=== PATIENT | male | born 1960 | race Caucasian/White ===

== ENCOUNTER 2020-10-18 16:42 | Outpatient (REF) | payer MEDICAID, SELFPAY | END 2020-10-18 16:43 | disposition home or self-care (01) | LOC: HO.LNP 16:42 | PROVIDERS: Visit Provider Hospitalist | DX: R35.1 Nocturia (principal); Z20.822 Contact with and (suspected) exposure to COVID-19 | CPT/HCPCS: U0003; U0005 ==

== ENCOUNTER 2020-10-20 17:58 | Emergency (ER) | payer MEDICAID, SELFPAY ==
[2020-10-20 18:03] VITALS: BP 195/109; PULSE 89; RESP 16; TEMP 36.5; O2SAT 100; BMI 38.3
--- NOTE | 2020-10-20 18:29 | ED.GENADULT ---
HPI - General Adult General Chief complaint: General Medical Stated complaint: High blood pressure Time Seen by Provider: 10/20/20 18:29 Source: patient Mode of arrival: ambulatory Limitations: no limitations History of Present Illness HPI narrative: Patient with no history of blood pressure hypertension was seen at urgent care for constipation noted to have blood pressure 189/109 repeat blood pressure was 220/110 when he arrived in the ER was 184/103 patient saw the PCP 2 days ago but at that time blood pressure was fine did not have any blood workup done for long time patient feels fine otherwise no chest pain or shortness of breath does have problems when urinate and does have constipation patient without any significant stress Related Data Previous Rx's Medication Instructions Recorded ibuprofen 600 mg tablet 600 mg PO TID #30 tab 10/18/20 amlodipine 5 mg PO DAILY #30 tab 10/20/20 Allergies Allergy/AdvReac Type Severity Reaction Status Date / Time Penicillins Allergy Unknown Verified 10/20/20 18:03 Review of Systems Review of Systems: Yes all other systems are reviewed and are negative [facility] Social History Social History Alcohol intake: never Patient Tobacco Use Status: Never used Tobacco Use of substances other than those prescribed or required for medical reasons: No Advance Directives: No Advance Directives Information Provided: Yes Advance Directives on File: No Physical Exam Vital Signs: Vital Signs: Last Vital Signs Temp 98.2 F 10/20/20 20:20 Pulse 86 10/20/20 20:24 Resp 18 10/20/20 20:20 BP 181/104 H 10/20/20 20:24 Pulse Ox 98 10/20/20 20:20 Body Mass Index 38.3 Appearance: Alert. Oriented X3. No acute distress. Eyes: PERRLA, No Nystagmus ENT: Pharynx normal. Oral Mucosa moist Neck: Normal inspection. Neck supple. CVS: Normal heart rate and rhythm. Pulses normal. Respiratory: No respiratory distress. Equal air entry bilateral, no wheezing/rales/rhonchi Abdomen: Soft and nontender. Bowel sounds are present, no mass palpable, no CVA tenderness Skin: Skin warm and dry. Normal skin color. Normal skin turgor. Extremities: No lower extremity edema. No calf tenderness Neuro: Oriented X 3. No motor deficit. No sensory deficit.No cerebellar signs , cranial nerves II-XII intact Medical Decision Making Lab Data Result diagrams: 10/20/20 19:20 10/20/20 19:20 Labs: Lab Results 10/20/20 10/20/20 10/20/20 Range/Units 19:20 19:20 20:23 WBC 11.1 H (4.8-10.8) X10*3/uL RBC 3.75 L (4.60-5.80) X10*6/uL Hgb 11.8 L (14.0-18.0) g/dl Hct 34.3 L (42-52) % MCV 91.5 (80-98) fL MCH 31.5 (27.0-33.0) pg MCHC 34.4 (31.0-36.0) g/dl RDW 11.8 (11.0-16.0) % Plt Count 334 (160-400) X10*3/uL MPV 10.7 (9.4-12.4) fL Immature Gran % (Auto) 0.5 H (0.0-0.4) % Neut % (Auto) 67.9 (45-73) % Lymph % (Auto) 20.0 (20-40) % [place] % (Auto) 8.7 (2-11) % Eos % (Auto) 2.3 (0-4) % Baso % (Auto) 0.6 (0-2) % Lymph # (Auto) 2.2 (1.2-4.9) X10*3/uL [place] # (Auto) 1.0 (0.1-1.2) X10*3/uL Eos # (Auto) 0.3 (0.0-0.4) X10*3/uL Baso # (Auto) 0.1 (0.0-0.2) X10*3/uL Abs Immat Gran (auto) 0.05 H (0.00-0.03) X10*3/uL Absolute Neuts (auto) 7.5 (2.0-8.3) X10*3/uL Absolute Nucleated RBC 0.000 (0.0-0.012) X10*3/uL Nucleated RBC % (auto) 0.0 (0.0-0.2) /100WBC Sodium 137 (135-145) mmol/L Potassium 4.4 (3.3-5.1) mmol/L Chloride 101 (96-108) mmol/L Carbon Dioxide 26 (22-29) mmol/L Anion Gap 14 (12-20) BUN 22 H (9-16) mg/dL Creatinine 2.57 H (0.5-1.4) mg/dL Estim Creat Clear Calc 41.6 Estimated GFR 26 POC Glucose 239 H (60-115) mg/dL Random Glucose 274 H (60-115) mg/dL Calcium 9.0 (8.4-10.2) mg/dL Discharge Plan Discharge Clinical Impression: Hypertension, Chronic kidney disease, Diabetes mellitus Patient Disposition: Home, Self-Care Instructions: Chronic Kidney Disease (ED), Hypertension and Diabetes (ED) Additional Instructions: Decreased salt intake drink plenty of fluids Follow with PCP as scheduled also Follow with cash management clerk take medication for blood pressure your normal blood pressure should be less than 140/90 Prescriptions: New amlodipine 5 mg tablet 5 mg PO DAILY Qty: 30 RF: 0 No Action ibuprofen 600 mg tablet 600 mg PO TID Qty: 30 RF: 0 Referrals: Daryl Kwok MD [Physician] - 1 week Interventions: ED Discharge Assessment Last Done: 10/20/20 20:32 Discharge Date/Time: 10/20/20 20:39
[2020-10-20 18:50] VITALS: BP 184/103; PULSE 84
[2020-10-20] MEDS: lisinopriL 20 MG TABLET PO (18:50)
[2020-10-20 19:28] LABS: MANUAL DIFF FLAG NO
[2020-10-20 19:29] LABS: Basophils Absolute Auto 0.1 X10*3/uL (0.0-0.2); Basophils Percent Auto 0.6 % (0-2); Eosinophils Absolute Auto 0.3 X10*3/uL (0.0-0.4); Eosinophils Percent Auto 2.3 % (0-4); Hematocrit 34.3 % (42-52); Hemoglobin 11.8 g/dl (14.0-18.0); Imm Gran Abs Auto 0.05 X10*3/uL (0.00-0.03); Imm Gran Pct Auto 0.5 % (0.0-0.4); Lymphocytes Absolute Auto 2.2 X10*3/uL (1.2-4.9); Mean Corpuscular HGB Conc 34.4 g/dl (31.0-36.0); Mean Corpuscular Hemoglobin 31.5 pg (27.0-33.0); Mean Corpuscular Volume 91.5 fL (80-98); Mean Platelet Volume 10.7 fL (9.4-12.4); Monocytes Percent Auto 8.7 % (2-11); Neutrophils Absolute Auto 7.5 X10*3/uL (2.0-8.3); Neutrophils Percent Auto 67.9 % (45-73); Platelet Count 334 X10*3/uL (160-400); Red Blood Count 3.75 X10*6/uL (4.60-5.80); Red Cell Distribution Width 11.8 % (11.0-16.0); White Blood Count 11.1 X10*3/uL (4.8-10.8)
[2020-10-20 19:51] LABS: Anion Gap 14 (12-20); Blood Urea Nitrogen 22 mg/dL (9-16); Carbon Dioxide 26 mmol/L (22-29); Chloride 101 mmol/L (96-108); Creatinine Clr Calc Pharmacy 41.6; Estimated Glomerular Filt Rate 26; Glucose Random 274 mg/dL (60-115); Potassium 4.4 mmol/L (3.3-5.1); Sodium 137 mmol/L (135-145)
[2020-10-20 20:20] VITALS: BP 181/104; PULSE 86; RESP 18; TEMP 36.8; O2SAT 98
[2020-10-20 20:24] VITALS: BP 181/104; PULSE 86
[2020-10-20] MEDS: amLODIPine Besylate 5 MG TABLET PO (20:24)
--- NOTE | 2020-10-20 20:25 | PC.NURSE ---
pt requesting food-provider notified, pt also pulled off tele monitor and got dressed, pt stating hes leaving in 5 or 10 minutes.
[2020-10-20 20:30] LABS: Glucose, Whole Blood 239 mg/dL (60-115)
== END 2020-10-20 20:39 | disposition home or self-care (01) ==
PROVIDERS: Emergency Provider Internal Medicine; PCP Internal Medicine
DX: I12.9 Hypertensive chronic kidney disease with stage 1 through stage 4 chronic kidney disease, or unspecified chronic kidney disease (principal); E11.22 Type 2 diabetes mellitus with diabetic chronic kidney disease; N18.9 Chronic kidney disease, unspecified
CPT/HCPCS: 36415; 80048; 82947; 85025; 99284

== ENCOUNTER 2020-10-29 11:55 | Outpatient (REF) | payer MEDICAID, SELFPAY ==
[2020-10-29 13:57] LABS: Hematocrit 37.6 % (42-52); Hemoglobin 12.4 g/dl (14.0-18.0); Mean Corpuscular Hemoglobin 30.5 pg (27.0-33.0); Mean Corpuscular Volume 92.6 fL (80-98); Mean Platelet Volume 11.8 fL (9.4-12.4); Platelet Count 291 X10*3/uL (160-400); Red Blood Count 4.06 X10*6/uL (4.60-5.80); White Blood Count 11.8 X10*3/uL (4.8-10.8)
[2020-10-29 15:34] LABS: Alanine Aminotransferase 11 U/L (0-40); Albumin Level 4.1 g/dL (3.5-5.0); Alkaline Phosphatase 73 U/L (39-117); Anion Gap 17 (12-20); Aspartate Amino Transferase 13 U/L (5-37); Bilirubin Total 0.3 mg/dL (0.0-1.0); Blood Urea Nitrogen 56 mg/dL (9-16); Calcium 9.8 mg/dL (8.4-10.2); Carbon Dioxide 22 mmol/L (22-29); Chloride 108 mmol/L (96-108); Estimated Glomerular Filt Rate 15; Glucose Fasting 193 mg/dL (60-99); Potassium 5.3 mmol/L (3.3-5.1); Sodium 142 mmol/L (135-145); Total Protein 8.2 g/dL (6.5-8.0)
== END 2020-10-29 11:56 | disposition home or self-care (01) ==
LOC: HO.HMGCLDS 11:55
PROVIDERS: PCP Internal Medicine; Visit Provider Hospitalist
DX: R35.1 Nocturia (principal)
CPT/HCPCS: 36415; 80053; 85027

== ENCOUNTER 2020-10-29 19:34 | Inpatient (IN) | payer MEDICAID, SELFPAY ==
--- NOTE | ~2020-10-29 | CT_ITS ---
EXAMINATION: CT ABDOMEN AND PELVIS WITHOUT CONTRAST CLINICAL INFORMATION: Renal failure. Evaluate for obstruction. COMPARISON: None TECHNIQUE: Multidetector volumetric imaging was performed from the superior aspect of the liver through the pubic symphysis. Sagittal and coronal reformatted images were obtained on the technologist's workstation. This CT examination was performed using dose optimization techniques as appropriate, variously including the following: *Automated exposure control *Adjustment of mA and/or kV according to patient size (this includes techniques or standardized protocols for targeted exams where dose is matched to indication/reason for exam; i.e. extremities or head) *Use of iterative reconstruction technique DLP: 1030 mGy-cm FINDINGS: LUNG BASES: Lungs are clear. Coronary calcifications. LIVER, GALLBLADDER, AND BILIARY TREE: The liver is normal in size, shape, and attenuation. No focal hepatic lesion or biliary ductal dilatation is present. Gallbladder unremarkable. PANCREAS: Unremarkable. SPLEEN: Unremarkable. ADRENAL GLANDS: Unremarkable. KIDNEYS, URETERS, BLADDER AND PROSTATE There is severe right and moderate left hydronephrosis and hydroureter leading up to the bladder which is markedly distended with a volume of approximately 1.5 L.c prostate is markedly enlarged measuring 7.6 cm transversely. There is perinephric stranding present on the right, as well as periureteral stranding about the right ureter. No urinary calculi. There is a 2.8 cm cyst within interpolar cortex of the LEFT kidney. GASTROINTESTINAL TRACT: Scattered colonic diverticula, without evidence of diverticulitis. Normal appendix. Stomach and small bowel unremarkable. ABDOMINAL WALL: No significant hernia is appreciated. LYMPH NODES: Normal. VASCULAR: Unremarkable. OSSEOUS STRUCTURES: No acute or suspicious osseous abnormalities. Diffuse disc bulge and associated endplate osteophytes. Calcific disc material present posteriorly at L5-S1. CT/CT abdomen pelvis wo con IMPRESSION: * Moderate to severe RIGHT and moderate LEFT hydronephrosis and bilateral hydroureter the to the markedly distended bladder. There is marked prostatomegaly. These changes likely pertain to bladder outlet obstruction. There is also RIGHT perinephric and periureteral fat stranding which could represent superimposed pyelonephritis/ureteritis. * Scattered colonic diverticula without evidence of diverticulitis.
--- NOTE | ~2020-10-29 | XR_ITS ---
EXAMINATION: XR CHEST CLINICAL INFORMATION: Acute on chronic renal failure COMPARISON: None TECHNIQUE: Frontal view of the chest was obtained. FINDINGS: Normal symmetric lung volumes. No parenchymal consolidation. No pleural effusion. No pneumothorax. Cardiomediastinal silhouette and pulmonary vascularity are within normal limits. No acute osseous abnormalities. XR/XR chest 1V IMPRESSION: Unremarkable examination.
[2020-10-29 19:41] VITALS: BP 168/86; PULSE 97; RESP 18; TEMP 36.9; O2SAT 100; BMI 36.2
--- NOTE | 2020-10-29 21:56 | ECG_ITS ---
Test Reason : MEDICALCLEARANCE Blood Pressure : / mmHG Vent. Rate : 091 BPM Atrial Rate : 091 BPM P-R Int : 220 ms QRS Dur : 082 ms QT Int : 372 ms P-R-T Axes : 064 074 095 degrees QTc Int : 457 ms Sinus rhythm with 1st degree A-V block Non specific T inversion lateral leads Borderline ECG No previous ECGs available Referred By: Humaira Wilkinson Electronically Signed By:SURINDER CRONIN
--- NOTE | 2020-10-29 22:40 | ED_ITS ---
HPI - General Adult General Chief complaint: Recheck/Abnormal Lab/Rx Stated complaint: abnormal labs Time Seen by Provider: 10/29/20 21:53 Source: patient Mode of arrival: ambulatory Limitations: no limitations History of Present Illness HPI narrative: 60-year-old male who walked into the emergency department for ab normal labs check. 60-year-old male who is not compliant with his medication and do not see PCP regularly with known history of hypertension and not taking the medicine for high blood pressure, patient was sent today for abnormal labs patient not sure what is abnormal. Patient only complained of urinary frequency for the past 2 months. No chest pain, no abdominal pain. Related Data Previous Rx's Medication Instructions Recorded ibuprofen 600 mg tablet 600 mg PO TID #30 tab 10/18/20 amlodipine 5 mg PO DAILY #30 tab 10/20/20 Allergies Allergy/AdvReac Type Severity Reaction Status Date / Time Penicillins Allergy Unknown Verified 10/20/20 18:03 Review of Systems Review of Systems: All other systems are reviewed and are negative Constitutional: Reports as per HPI and Reports no additional constitutional complaints Eyes: Reports as per HPI and Reports no additional eye complaints Reports system reviewed and no additional complaints, except as documented Cardiovascular: Reports as per HPI and Reports no additional cardiovascular complaints Respiratory: Reports as per HPI and Reports no additional respiratory complaints Gastrointestinal: Reports as per HPI and Reports no additional gastrointestinal complaints Genitourinary: Reports no additional female genitourinary complaints Musculoskeletal: Reports no additional musculoskeletal complaints Skin/Breast: Reports system reviewed and no additional complaints, except as docu Psychiatric: Reports no additional psychiatric complaints Endocrine: Reports no additional endocrine complaints Hematologic/Lymphatic: Reports no additional hematologic/lymphatic complaints Allergic/Immunologic: Reports no additional allergic/immunologic complaints Reports system reviewed and no additional complaints, except as documented and Reports Abnormal speech present [facility] Social History Social History Alcohol intake: never Patient Tobacco Use Status: Never used Tobacco Advance Directives: No Advance Directives Information Provided: No Physical Exam Vital Signs: Vital Signs: Last Vital Signs Temp 98.6 F 10/30/20 01:08 Pulse 86 10/30/20 01:08 Resp 16 10/30/20 01:08 BP 168/91 H 10/30/20 01:08 Pulse Ox 99 10/30/20 01:08 Body Mass Index 36.2 Vital signs have been reviewed as appeared to be correct. Blood pressure elevated. Heart rate normal. Respiration rate normal. Temperature normal. Oxygen saturation normal. Appearance: Alert. Oriented X3. No acute distress. Head: Normal external exam. Normocephalic. Atraumatic. No Campos signs noted. No raccoon eyes noted Eyes: PERRLA. EOMI. Conjunctiva and sclera normal. Eyelids normal. ENT: TM's Normal. Pharynx normal. Uvula midline. Moist mucous membranes. No trismus noted. No drooling noted. No muffled voice noted. Neck: Normal inspection. Neck supple. FROM. No adenopathy. Thyroid Normal. No meningeal signs. No neck mass noted. CVS: Normal heart rate and rhythm. Heart sound normal. No murmurs noted. Pulses normal throughout. Respiratory: No respiratory distress. Painless inspiration. Breath sounds normal. No wheezes/rales/rhonchi noted. Chest nontender. No accessory muscle usage noted or decreased air movement noted. Abdomen: Soft and nontender. Bowel sounds normal in all 4 quadrants. No distention noted. No organomegaly noted. No visible injury noted. Back: No CVA tenderness. Full range of motion noted. Skin: Skin warm and dry. Normal skin color. Normal skin turgor. No rashes/lesions/lacerations noted. Extremities: Bilateral lower extremities +2 pitting edema. Neuro: Oriented X 3. No motor deficit. No sensory deficit. Reflexes normal. Course Course Course Narrative: Assessment and plan. 60-year-old male came in with acute on chronic renal failure, with mild hyperkalemia with no EKG changes, non compliant with medication for hypertension. Case discussed with Dr. Cuenca from Nephrology. Recommended to control blood pressure by giving hydralazine and amlodipine. Give p.o. 30 mg of Kayexalate for the hyperkalemia. Check urine electrolytes. CT of the abdomen and pelvis with no contrast to rule out obstructive uropathy. And admit the patient and he will see him in the morning. Reevaluation(s) Reevaluation #1: Assessment and plan. 60-year-old male came in with acute on chronic renal failure, CT scan showing urinary bladder outlet obstruction due to enlarged prostate, urine with mild UTI, patient do not meet criteria for sepsis since the patient have symptoms of dysuria well cover with levofloxacin seen, patient do not meet criteria for SIRS. Time: 01:46 Medical Decision Making Lab Data Lab results reviewed: Yes I reviewed the patient's lab results. Result diagrams: 10/29/20 23:01 10/29/20 23:01 Labs: Lab Results 10/29/20 10/29/20 10/29/20 Range/Units 23:01 23:01 23:01 WBC 11.9 H (4.8-10.8) X10*3/uL RBC 3.74 L (4.60-5.80) X10*6/uL Hgb 11.6 L (14.0-18.0) g/dl Hct 34.4 L (42-52) % MCV 92.0 (80-98) fL MCH 31.0 (27.0-33.0) pg MCHC 33.7 (31.0-36.0) g/dl RDW 12.1 (11.0-16.0) % Plt Count 271 (160-400) X10*3/uL MPV 11.1 (9.4-12.4) fL Immature Gran % (Auto) 0.3 (0.0-0.4) % Neut % (Auto) 68.6 (45-73) % Lymph % (Auto) 19.7 L (20-40) % [place] % (Auto) 8.4 (2-11) % Eos % (Auto) 2.5 (0-4) % Baso % (Auto) 0.5 (0-2) % Lymph # (Auto) 2.3 (1.2-4.9) X10*3/uL [place] # (Auto) 1.0 (0.1-1.2) X10*3/uL Eos # (Auto) 0.3 (0.0-0.4) X10*3/uL Baso # (Auto) 0.1 (0.0-0.2) X10*3/uL Abs Immat Gran (auto) 0.03 (0.00-0.03) X10*3/uL Absolute Neuts (auto) 8.1 (2.0-8.3) X10*3/uL Absolute Nucleated RBC 0.000 (0.0-0.012) X10*3/uL Nucleated RBC % (auto) 0.0 (0.0-0.2) /100WBC Sodium 139 (135-145) mmol/L Potassium 5.4 H (3.3-5.1) mmol/L Chloride 107 (96-108) mmol/L Carbon Dioxide 17 L (22-29) mmol/L Anion Gap 20 (12-20) BUN 57 H (9-16) mg/dL Creatinine 4.22 H* (0.5-1.4) mg/dL Estim Creat Clear Calc 24.6 Estimated GFR 15 Random Glucose 261 H (60-115) mg/dL Calcium 8.8 D (8.4-10.2) mg/dL Magnesium 1.9 (1.6-2.6) mg/dL Total Bilirubin 0.2 (0.0-1.0) mg/dL AST 15 (5-37) U/L ALT 11 (0-40) U/L Alkaline Phosphatase 68 (39-117) U/L B-Natriuretic Peptide 53 (<100) pg/mL Total Protein 7.9 (6.5-8.0) g/dL Albumin 3.8 (3.5-5.0) g/dL Lipase 167 H (8-78) U/L Urine Color Urine Appearance Urine pH (5.0-8.0) Ur Specific [place] (1.005-1.025) Urine Protein (NEG-TRACE) MG/DL Urine Glucose (UA) (NEG) MG/DL Urine Ketones (NEG) MG/DL Urine Blood (NEG) Urine Nitrite (NEG) Ur Leukocyte Esterase (NEG) Urine RBC (0) /HPF Urine WBC (0-4) /HPF Ur Squamous Epith Cells /LPF Ur Renal Epithelial Cell /LPF Urine Bacteria /LPF U Random Total Protein (<12) mg/dL Ur Random Sodium mmol/L Urine Creatinine mg/dL COVID-19 (NEAL) (Negative) COVID-19 Clin Com 10/30/20 10/30/20 10/30/20 Range/Units 00:20 00:20 00:23 WBC (4.8-10.8) X10*3/uL RBC (4.60-5.80) X10*6/uL Hgb (14.0-18.0) g/dl Hct (42-52) % MCV (80-98) fL MCH (27.0-33.0) pg MCHC (31.0-36.0) g/dl RDW (11.0-16.0) % Plt Count (160-400) X10*3/uL MPV (9.4-12.4) fL Immature Gran % (Auto) (0.0-0.4) % Neut % (Auto) (45-73) % Lymph % (Auto) (20-40) % [place] % (Auto) (2-11) % Eos % (Auto) (0-4) % Baso % (Auto) (0-2) % Lymph # (Auto) (1.2-4.9) X10*3/uL [place] # (Auto) (0.1-1.2) X10*3/uL Eos # (Auto) (0.0-0.4) X10*3/uL Baso # (Auto) (0.0-0.2) X10*3/uL Abs Immat Gran (auto) (0.00-0.03) X10*3/uL Absolute Neuts (auto) (2.0-8.3) X10*3/uL Absolute Nucleated RBC (0.0-0.012) X10*3/uL Nucleated RBC % (auto) (0.0-0.2) /100WBC Sodium (135-145) mmol/L Potassium (3.3-5.1) mmol/L Chloride (96-108) mmol/L Carbon Dioxide (22-29) mmol/L Anion Gap (12-20) BUN (9-16) mg/dL Creatinine (0.5-1.4) mg/dL Estim Creat Clear Calc Estimated GFR Random Glucose (60-115) mg/dL Calcium (8.4-10.2) mg/dL Magnesium (1.6-2.6) mg/dL Total Bilirubin (0.0-1.0) mg/dL AST (5-37) U/L ALT (0-40) U/L Alkaline Phosphatase (39-117) U/L B-Natriuretic Peptide (<100) pg/mL Total Protein (6.5-8.0) g/dL Albumin (3.5-5.0) g/dL Lipase (8-78) U/L Urine Color STRAW Urine Appearance CLEAR Urine pH 6.0 (5.0-8.0) Ur Specific [place] 1.010 (1.005-1.025) Urine Protein NEG (NEG-TRACE) MG/DL Urine Glucose (UA) 100 H (NEG) MG/DL Urine Ketones NEG (NEG) MG/DL Urine Blood NEG (NEG) Urine Nitrite NEG (NEG) Ur Leukocyte Esterase TRACE H (NEG) Urine RBC 0-2 (0) /HPF Urine WBC 5-9 H (0-4) /HPF Ur Squamous Epith Cells TRACE /LPF Ur Renal Epithelial Cell TRACE /LPF Urine Bacteria NONE /LPF U Random Total Protein < 7 (<12) mg/dL Ur Random Sodium 44.0 mmol/L Urine Creatinine 39.78 mg/dL COVID-19 (NEAL) Negative (Negative) COVID-19 Clin Com See Note Imaging Data CT scan - abdomen: Radiologist's impression: IMPRESSION: * Moderate to severe RIGHT and moderate LEFT hydronephrosis and bilateral hydroureter the to the markedly distended bladder. There is marked prostatomegaly. These changes likely pertain to bladder outlet obstruction. There is also RIGHT perinephric and periureteral fat stranding which could represent superimposed pyelonephritis/ureteritis. * Scattered colonic diverticula without evidence of diverticulitis. Chest x-ray: Radiologist's impression: No acute pathology Discharge Plan Discharge Clinical Impression: Acute hyperkalemia Acute on chronic kidney failure Qualifiers: Acute renal failure type: unspecified Patient Disposition: Admitted As Inpatient
[2020-10-29 23:05] LABS: MANUAL DIFF FLAG NO
[2020-10-29 23:07] LABS: Basophils Absolute Auto 0.1 X10*3/uL (0.0-0.2); Basophils Percent Auto 0.5 % (0-2); Eosinophils Absolute Auto 0.3 X10*3/uL (0.0-0.4); Eosinophils Percent Auto 2.5 % (0-4); Hematocrit 34.4 % (42-52); Hemoglobin 11.6 g/dl (14.0-18.0); Imm Gran Abs Auto 0.03 X10*3/uL (0.00-0.03); Imm Gran Pct Auto 0.3 % (0.0-0.4); Lymphocytes Absolute Auto 2.3 X10*3/uL (1.2-4.9); Lymphocytes Percent Auto 19.7 % (20-40); Mean Corpuscular HGB Conc 33.7 g/dl (31.0-36.0); Mean Platelet Volume 11.1 fL (9.4-12.4); Monocytes Percent Auto 8.4 % (2-11); Neutrophils Absolute Auto 8.1 X10*3/uL (2.0-8.3); Neutrophils Percent Auto 68.6 % (45-73); Platelet Count 271 X10*3/uL (160-400); Red Blood Count 3.74 X10*6/uL (4.60-5.80); Red Cell Distribution Width 12.1 % (11.0-16.0); White Blood Count 11.9 X10*3/uL (4.8-10.8)
[2020-10-29 23:34] LABS: Alanine Aminotransferase 11 U/L (0-40); Albumin Level 3.8 g/dL (3.5-5.0); Alkaline Phosphatase 68 U/L (39-117); Anion Gap 20 (12-20); Aspartate Amino Transferase 15 U/L (5-37); B Type Natriuretic Peptide 53 pg/mL (<100); Bilirubin Total 0.2 mg/dL (0.0-1.0); Blood Urea Nitrogen 57 mg/dL (9-16); Calcium 8.8 mg/dL (8.4-10.2); Carbon Dioxide 17 mmol/L (22-29); Chloride 107 mmol/L (96-108); Creatinine Clr Calc Pharmacy 24.6; Estimated Glomerular Filt Rate 15; Glucose Random 261 mg/dL (60-115); Lipase 167 U/L (8-78); Potassium 5.4 mmol/L (3.3-5.1); Sodium 139 mmol/L (135-145); Total Protein 7.9 g/dL (6.5-8.0)
[2020-10-30] VITALS (9 sets, daily range): BP systolic 141–180; BP diastolic 58–98; PULSE 80–91; RESP 12–20; TEMP 36.5–37.5; O2SAT 96–100; BMI 34.6
[2020-10-30] MEDS: amLODIPine Besylate 2.5 MG TABLET PO (00:26)
[2020-10-30] MEDS: hydrALAZINE HCl 25 MG TABLET PO (00:27)
[2020-10-30] MEDS: 0.9 % Sodium Chloride 1,000 ML 999 ML IVCONT (00:28)
[2020-10-30] MEDS: Sodium Polystyrene Sulfon/Sorb 15 GM/60 ML ORAL.SUSP 30 GM PO (00:28)
[2020-10-30 00:38] LABS: Glucose Urine UA 100 MG/DL (NEG); Leukocyte Esterase Urine TRACE (NEG); Nitrite Urine NEG (NEG); UACC Culture Trigger YES; Urine Blood NEG (NEG); Urine Ketones NEG (NEG); Urine Protein NEG (NEG-TRACE)
[2020-10-30 00:43] LABS: Magnesium 1.9 mg/dL (1.6-2.6)
[2020-10-30 00:50] LABS: Appearance Urine CLEAR; Color Urine STRAW; RBC Urine 0-2 /HPF (0); Renal Epithelial Cells Urine TRACE /LPF; Squamous Epithelial Cell Urine TRACE /LPF
[2020-10-30 01:14] LABS: COVID-19 Test Negative (Negative); IDNOW Serial# 9DD0AD1C
[2020-10-30 01:15] LABS: Creatinine Urine 39.78 mg/dL; Total Protein Urine Random < 7 mg/dL (<12)
--- NOTE | 2020-10-30 02:46 | PC.NURSE ---
diamante not in stock in [facility],
[2020-10-30] MEDS: levoFLOXacin/D5W 750 MG/150 ML PIGGYBACK 100 MG IV (02:47)
--- NOTE | 2020-10-30 03:14 | PC.NURSE ---
sodium chloride still infusing slowly, waiting to hang L.R.
[2020-10-30 03:28] LABS: Estimated Average Glucose 260 mg/dL; Hemoglobin A1c % 10.7 %
[2020-10-30] MEDS: Enoxaparin Sodium 40 MG/0.4 ML SYRINGE SUBCUT (03:36)
[2020-10-30] MEDS: Lactated Ringers 1,000 ML 125 ML IVCONT (03:36)
--- NOTE | 2020-10-30 05:23 | PC.NURSE ---
pt has been to the bathroom 2-3 tin=mes, reports diarrhea.
--- NOTE | 2020-10-30 06:37 | P.HPHOSP_ITS ---
History of Present Illness Date of Service: 10/30/20 Chief Complaint: Abnormal lab This is a 60-year-old male who was recently diagnosed with diabetes not on medications, and history of hypertension who presents to the hospital stating that his labs today showed abnormal kidney function and therefore was asked by his PCP to come to the hospital. Patient reports that about 2 weeks ago he saw due to urinary frequency and they did labs that showed he was diabetic but patient was not started on any medications pending visit with his PCP. He had an appointment with his PCP coming up in early November but labs today showed abnormal kidney function and therefore was referred to come to the hospital. His urinary frequency is mostly at nighttime. Patient reports urinary frequency, urgency with no dysuria for the past 2 weeks, he also reports lower extremity swelling for the past 2 weeks with no dyspnea, n o orthopnea or PND, he reports that he had low appetite last week but his appetite is improving but is not back to his baseline. He denies any abdominal pain but reports nausea and vomiting today. No chills, no fever. No headache, change in vision, no shortness of breath, no chest pain, no weakness numbness or tingling. On arrival to the ED patient hemodynamically stable with blood pressure of 168/86, For WBC count of 11.8, hemoglobin of 12.4, potassium of 5.4, BUN of 57 and creatinine of 4.2 as compared to BUN of 22 and creatinine of 2.57 on October 20, UA positive for leukocyte Estrace and WBC Pelvic she has T showed moderate to severe right and moderate left hydronephrosis and bilateral hydroureter to the markedly distended bladder, there is marked prostatomegaly, these changes likely pertain to bladder outlet obstruction right perinephric and periurethral fat stranding which could worsen superimposed pyelonephritis, Past medical history as below and confirmed as patient Review of Systems Review of Systems: Yes all other systems are reviewed and are negative [facility] Medical History (Updated 10/30/20 @ 06:45 by Benita Almaraz MD) Chronic kidney disease Diabetes mellitus Hypertension Social History Alcohol intake: never Patient Tobacco Use Status: Never used Tobacco Advance Directives: No Advance Directives Information Provided: No Meds Allergies Allergy/AdvReac Type Severity Reaction Status Date / Time Penicillins Allergy Unknown Verified 10/20/20 18:03 Active Medications: Current Medications Generic Name Dose Route Start Last Admin Trade Name Freq PRN Reason Stop Dose Admin Acetaminophen 650 mg 10/30/20 00:30 Acetaminophen 325 Mg Tablet PO Q6H PRN Pain, Mild (Pain Scale 1-3) Docusate Sodium 100 mg 10/30/20 00:30 Docusate Sodium 100 Mg Capsule PO DAILY PRN Constipation Enoxaparin Sodium 40 mg 10/30/20 01:00 10/30/20 03:36 Enoxaparin Sodium 40 Mg/0.4 Ml Syringe SUBCUT 40 mg Q24H MERLE Administration Lactated Ringer's 1,000 mls @ 125 mls/hr 10/30/20 00:30 10/30/20 03:36 Lr IVCONT 125 mls/hr .Q8H MERLE Administration Insulin Human Lispro 0 unit 10/30/20 07:30 Insulin Lispro 100 Unit/Ml 3 Ml Vial SUBCUT QIDACHS [facility] Protocol Ondansetron HCl 4 mg 10/30/20 00:30 Ondansetron Hcl 4 Mg/2 Ml Vial IVPUSH Q8H PRN Nausea and Vomiting Sodium Chloride 3 ml 10/30/20 08:00 0.9 % Sodium Chloride Flush 3 Ml Syringe IVFLUSH QSHIFT [facility] Physical Exam Vital Signs and Narrative: Vital Signs: Last Vital Signs Temp 98.6 F 10/30/20 01:08 Pulse 85 10/30/20 05:23 Resp 12 10/30/20 05:23 BP 164/96 H 10/30/20 05:23 Pulse Ox 98 10/30/20 05:23 Body Mass Index 36.2 Const: General: cooperative and no acute distress Orientation/consciousness: patient oriented x3 Eyes: General: appearance normal, both eyes and all related structures Resp: Effort & Inspection: normal respiratory effort and able to speak in complete sentences Cardio: Rate: regular rate Rhythm: regular rhythm GI: Palpation (GI): Soft to palpation Auscultation: normal bowel sounds : Other: Right CVA tenderness Skin: General skin exam: no rashes or lesions noted Neuro: General: patient oriented x3 Cognition (Neuro): normal cognition Extrem: Other: 1+ pedal edema bilaterally General: Yes normal to inspection Results Labs CBC and Chem 7: 10/29/20 23:10/29/20 23:01 Labs: Laboratory Results - last 24 hr 10/29/20 10/29/20 10/29/20 23:01 23:01 23:01 MCV 92.0 MCH 31.0 MCHC 33.7 RDW 12.1 Plt Count 271 MPV 11.1 Immature Gran % (Auto) 0.3 Neut % (Auto) 68.6 Lymph % (Auto) 19.7 L [place] % (Auto) 8.4 Eos % (Auto) 2.5 Baso % (Auto) 0.5 Lymph # (Auto) 2.3 [place] # (Auto) 1.0 Eos # (Auto) 0.3 Baso # (Auto) 0.1 Abs Immat Gran (auto) 0.03 Absolute Neuts (auto) 8.1 Absolute Nucleated RBC 0.000 Nucleated RBC % (auto) 0.0 Anion Gap 20 Estim Creat Clear Calc 24.6 Estimated GFR 15 Random Glucose 261 H Estimat Average Glucose Hemoglobin A1c % Lactic Acid Calcium 8.8 D Magnesium 1.9 Total Bilirubin 0.2 AST 15 ALT 11 Alkaline Phosphatase 68 B-Natriuretic Peptide 53 Total Protein 7.9 Albumin 3.8 Lipase 167 H Urine Color Urine Appearance Urine pH Ur Specific [place] Urine Protein Urine Glucose (UA) Urine Ketones Urine Blood Urine Nitrite Ur Leukocyte Esterase Urine RBC Urine WBC Ur Squamous Epith Cells Ur Renal Epithelial Cell Urine Bacteria U Random Total Protein Ur Random Sodium Urine Creatinine COVID-19 (NEAL) COVID-19 Clin Com 10/30/20 10/30/20 10/30/20 00:20 00:20 00:23 MCV MCH MCHC RDW Plt Count MPV Immature Gran % (Auto) Neut % (Auto) Lymph % (Auto) [place] % (Auto) Eos % (Auto) Baso % (Auto) Lymph # (Auto) [place] # (Auto) Eos # (Auto) Baso # (Auto) Abs Immat Gran (auto) Absolute Neuts (auto) Absolute Nucleated RBC Nucleated RBC % (auto) Anion Gap Estim Creat Clear Calc Estimated GFR Random Glucose Estimat Average Glucose Hemoglobin A1c % Lactic Acid Calcium Magnesium Total Bilirubin AST ALT Alkaline Phosphatase B-Natriuretic Peptide Total Protein Albumin Lipase Urine Color STRAW Urine Appearance CLEAR Urine pH 6.0 Ur Specific [place] 1.010 Urine Protein NEG Urine Glucose (UA) 100 H Urine Ketones NEG Urine Blood NEG Urine Nitrite NEG Ur Leukocyte Esterase TRACE H Urine RBC 0-2 Urine WBC 5-9 H Ur Squamous Epith Cells TRACE Ur Renal Epithelial Cell TRACE Urine Bacteria NONE U Random Total Protein < 7 Ur Random Sodium 44.0 Urine Creatinine 39.78 COVID-19 (NEAL) Negative COVID-19 Clin Com See Note 10/30/20 10/30/20 02:05 02:06 MCV MCH MCHC RDW Plt Count MPV Immature Gran % (Auto) Neut % (Auto) Lymph % (Auto) [place] % (Auto) Eos % (Auto) Baso % (Auto) Lymph # (Auto) [place] # (Auto) Eos # (Auto) Baso # (Auto) Abs Immat Gran (auto) Absolute Neuts (auto) Absolute Nucleated RBC Nucleated RBC % (auto) Anion Gap Estim Creat Clear Calc Estimated GFR Random Glucose Estimat Average Glucose 260 Hemoglobin A1c % 10.7 Lactic Acid 1.0 Calcium Magnesium Total Bilirubin AST ALT Alkaline Phosphatase B-Natriuretic Peptide Total Protein Albumin Lipase Urine Color Urine Appearance Urine pH Ur Specific [place] Urine Protein Urine Glucose (UA) Urine Ketones Urine Blood Urine Nitrite Ur Leukocyte Esterase Urine RBC Urine WBC Ur Squamous Epith Cells Ur Renal Epithelial Cell Urine Bacteria U Random Total Protein Ur Random Sodium Urine Creatinine COVID-19 (NEAL) COVID-19 Clin Com Imaging Radiologist's Impressions: Impressions Abdomen/Pelvis CT 10/30/20 00:01 IMPRESSION: * Moderate to severe RIGHT and moderate LEFT hydronephrosis and bilateral hydroureter the to the markedly distended bladder. There is marked prostatomegaly. These changes likely pertain to bladder outlet obstruction. There is also RIGHT perinephric and periureteral fat stranding which could represent superimposed pyelonephritis/ureteritis. * Scattered colonic diverticula without evidence of diverticulitis. Chest X-Ray 10/30/20 00:04 IMPRESSION: Unremarkable examination. Assessment and Plan (1) Acute on chronic kidney failure: Qualifiers: Acute renal failure type: unspecified Status: Acute (2) Acute hyperkalemia: Status: Acute (3) Nocturia: Status: Acute (4) Pyelonephritis: Status: Acute (5) Bladder outlet obstruction: Status: Acute This is a 60-year-old male with past medical history of hypertension noncompliant with medication, and recently diagnosed diabetes not on medication who presents to the hospital complaining of nocturia area and as well abnormal labs done in outpatient setting # JOSEE - patient was seen in the ED on October 20 with a creatinine function of 2.57, re turns today with a creatinine of 4.22 - most likely multifactorial secondary to bladder outlet obstruction as well as UTI/pyelonephritis - unclear what his baseline was prior to October - patient also reports that he was diagnosed with diabetes recently - will treat with IV antibiotic - will start him on fluid - nephrology and urology consulted - hold nephrotoxic medications # nocturia - most likely secondary to BPH/bladder outlet obstruction - will start patient on Flomax - nephrology consult # pyelonephritis - has leukocytosis, afebrile - has urinary frequency - will start patient on antibiotic - follow cultures # hypertension - not compliant with medications - resume amlodipine # bladder outlet obstruction - started on Flomax - urology consulted # diabetes - will start him on low-dose sliding scale insulin - obtain hemoglobin A1c - diabetic diet - may need to be started on p.o. medications prior to discharge DVT prophylaxis: Lovenox Quality Stroke Does the patient have a stroke diagnosis?: No VTE Prior VTE?: No VTE Risk Level:: Medical - moderate - high VTE Device Contraindication: Treatment Not Indicated VTE Drug Contraindication: N/A - Med Ordered
[2020-10-30 08:12] LABS: Glucose, Whole Blood 186 mg/dL (60-115)
[2020-10-30] MEDS: Tamsulosin HCL 0.4 MG CAPSULE PO (08:20)
[2020-10-30] MEDS: Insulin Lispro 100 UNIT/ML 3 ML VIAL SUBCUT ×2 (08:20→16:30)
[2020-10-30] MEDS: amLODIPine Besylate 5 MG TABLET PO (08:20)
[2020-10-30] MEDS: cefTRIAXone sodium 1 GM in 0.9 % Sodium Chloride 50 ML IV (08:27)
[2020-10-30] MEDS: 0.9 % Sodium Chloride Flush 3 ML SYRINGE IVFLUSH (08:28)
--- NOTE | 2020-10-30 10:12 | P.CDIC_ITS ---
CDI Concurrent Query Service Date: 10/30/20 Documentation Clarification: Please clarify if you are treating a proba ble/suspected/likely or confirmed: Clarify which of the following accurately represents the patient's renal status: - Acute renal failure with suspected ATN - Acute renal failure with other pathology (medullary, papillary, or cortical necrosis) - Acute renal failure (with type, appropriate) on Chronic Kidney Disease (CKD) - see criteria - Acute kidney injury (non-traumatic) - see criteria - CKD, please provide stage - see criteria - ESRD - CKD V now requiring permanent dialysis and/or transplant - Other (please specify): - Unable to determine Criteria for JOSEE* 1)Increase in serum creatinine by > 0.3 mg/dL within 48 hours, or 2)Increase in serum creatinine to > 1.5 times baseline, which is known or presumed to have occurred within 7 days, or 3)Urine volume < 0.5 mL/kg/hour for six hours CKD Staging: - Stage G1 - Normal or High - 90 - Stage G2 - Mildly Decreased - 60-89 - Stage G3a - Mildly to Moderately Decreased - 45-59 - Stage G3b - Mildly to Severely Decreased - 30-44 - Stage G4 - Severely Decreased - 15-29 - Stage G5 - Kidney Failure - < 15 Kidney Disease: Improving Global Outcomes (KDIGO) 2012 PLEASE DO NOT DELETE/MODIFY EXISTING CONTENT Additional information is needed in order to code to the highest accuracy and appropriate Severity of Illness (SOI). Please clarify the information noted below in your progress notes and discharge summary. Risk Factors/Clinical Indicators/Treatments BUN 57 Creatinine 4.22 Estimate GFR 15 PMH: CKD Per ED impression: Acute on Chronic Renal failure CDS: Kathy Rene RN Contact Number: [phone] Please Review the information above and exercise your independent professional judgment in responding to the query. If you concur, pleas document in the PROGRESS NOTES and DISCHARGE SUMMARY. If you do not agree with the query, please document in the query above. THIS QUERY IS PART OF THE PERMANENT MEDICAL RECORD
[2020-10-30 11:06] LABS: Anion Gap 15 (12-20); Blood Urea Nitrogen 56 mg/dL (9-16); Calcium 8.7 mg/dL (8.4-10.2); Carbon Dioxide 21 mmol/L (22-29); Chloride 108 mmol/L (96-108); Creatinine Clr Calc Pharmacy 24.4; Estimated Glomerular Filt Rate 14; Glucose Random 179 mg/dL (60-115); Potassium 5.1 mmol/L (3.3-5.1); Sodium 139 mmol/L (135-145)
--- NOTE | 2020-10-30 11:19 | MHC.CM.PN ---
met with pt who is independent cm intervention is not felt indicated pts car in parking lot will drive himsself home
[2020-10-30 11:30] LABS: Glucose, Whole Blood 179 mg/dL (60-115)
[2020-10-30 11:38] LABS: Glucose, Whole Blood 145 mg/dL (60-115)
--- NOTE | 2020-10-30 12:04 | PM.EVENT ---
Event Note Date of Service: 10/30/20 Event Note: Pt seen and examined Pt with Obstructive Uropathy Suggest Urology to place a 3 way cath with CBI as pt with hematuria and clots Agree with Flomax ? Role of PSA check IVF changed to D5 NS as LR has K in it Suggest LOW K DIET Thx
[2020-10-30] MEDS: Acetaminophen 325 MG TABLET 650 MG PO ×2 (12:24→21:47)
[2020-10-30] MEDS: Dextrose 5 % and 0.9 % NaCl 1,000 ML 100 ML IVCONT (12:25)
--- NOTE | 2020-10-30 13:00 | PC.NURSE ---
Pt bonilla that was inserted in er was not draining any urine, some bloody drainage was in tubing, this rn attempted to irrigate bonilla with renal MD at bedside, Both this RN and renal MD tried repositioning bonilla with no success. Pt c/o pain, tylenol given for bonilla discomfort. This Rn messaged Dr madden, Dr madden to bedside to examine pt, reinserted a new 18 f bonilla, draining yellow urine. Bonilla to be left in for 1 wk per MD
[2020-10-30 16:09] LABS: Glucose, Whole Blood 282 mg/dL (60-115)
[2020-10-30 20:02] LABS: Glucose, Whole Blood 184 mg/dL (60-115)
[2020-10-31] MEDS: Enoxaparin Sodium 40 MG/0.4 ML SYRINGE SUBCUT (01:34)
[2020-10-31] MEDS: Dextrose 5 % and 0.9 % NaCl 1,000 ML 100 ML IVCONT (01:34)
[2020-10-31 04:00] VITALS: BP 160/79; PULSE 83; RESP 18; TEMP 37; O2SAT 96
[2020-10-31] MEDS: Acetaminophen 325 MG TABLET 650 MG PO ×2 (05:00→21:32)
[2020-10-31 06:24] LABS: MANUAL DIFF FLAG NO
[2020-10-31 06:32] LABS: Basophils Absolute Auto 0.1 X10*3/uL (0.0-0.2); Basophils Percent Auto 0.5 % (0-2); Eosinophils Absolute Auto 0.2 X10*3/uL (0.0-0.4); Eosinophils Percent Auto 1.9 % (0-4); Hematocrit 29.4 % (42-52); Hemoglobin 9.6 g/dl (14.0-18.0); Imm Gran Abs Auto 0.04 X10*3/uL (0.00-0.03); Imm Gran Pct Auto 0.4 % (0.0-0.4); Lymphocytes Percent Auto 20.5 % (20-40); Mean Corpuscular HGB Conc 32.7 g/dl (31.0-36.0); Mean Corpuscular Hemoglobin 30.3 pg (27.0-33.0); Mean Corpuscular Volume 92.7 fL (80-98); Mean Platelet Volume 11.5 fL (9.4-12.4); Monocytes Absolute Auto 0.8 X10*3/uL (0.1-1.2); Monocytes Percent Auto 8.4 % (2-11); Neutrophils Absolute Auto 6.8 X10*3/uL (2.0-8.3); Neutrophils Percent Auto 68.3 % (45-73); Platelet Count 229 X10*3/uL (160-400); Red Blood Count 3.17 X10*6/uL (4.60-5.80); Red Cell Distribution Width 12.2 % (11.0-16.0)
[2020-10-31 07:11] VITALS: BP 152/81; PULSE 82; RESP 18; TEMP 36.4; O2SAT 98
[2020-10-31 07:24] LABS: Anion Gap 12 (12-20); Blood Urea Nitrogen 39 mg/dL (9-16); Calcium 8.6 mg/dL (8.4-10.2); Carbon Dioxide 21 mmol/L (22-29); Chloride 110 mmol/L (96-108); Estimated Glomerular Filt Rate 21; Glucose Random 270 mg/dL (60-115); Potassium 4.2 mmol/L (3.3-5.1); Sodium 139 mmol/L (135-145)
[2020-10-31 07:27] LABS: Glucose, Whole Blood 235 mg/dL (60-115)
[2020-10-31 08:01] VITALS: BP 152/81; PULSE 82
[2020-10-31] MEDS: Tamsulosin HCL 0.4 MG CAPSULE PO (08:01)
[2020-10-31] MEDS: amLODIPine Besylate 5 MG TABLET PO (08:01)
[2020-10-31] MEDS: Insulin Lispro 100 UNIT/ML 3 ML VIAL SUBCUT ×4 (08:01→21:35)
[2020-10-31] MEDS: cefTRIAXone sodium 1 GM in 0.9 % Sodium Chloride 50 ML IV (08:01)
--- NOTE | 2020-10-31 08:46 | P.PNIM_ITS ---
Subjective Subjective Date of Service: 11/01/20 Interval History: Seen in /fu for JOSEE, obstructive uropathy, Pyelo Physical Exam Vital Signs: Vital Signs: Last Vital Signs Temp 97.5 F 10/31/20 07:11 Pulse 82 10/31/20 08:01 Resp 18 10/31/20 07:11 BP 152/81 H 10/31/20 08:01 Pulse Ox 98 10/31/20 07:11 Body Mass Index 34.6 Const: General: cooperative and no acute distress Orientation/consciousness: patient oriented x3 Resp: Effort & Inspection: normal respiratory effort and able to speak in c omplete sentences Cardio: Rate: regular rate Rhythm: regular rhythm GI: Palpation (GI): Soft to palpation Auscultation: normal bowel sounds : Other: Right CVA tenderness Skin: General skin exam: no rashes or lesions noted Neuro: General: patient oriented x3 Cognition (Neuro): normal cognition Extrem: Other: 1+ pedal edema bilaterally General: Yes normal to inspection Objective Data Current Medications Generic Name Dose Route Start Last Admin Trade Name Freq PRN Reason Stop Dose Admin Acetaminophen 650 mg 10/30/20 00:30 10/31/20 05:00 Acetaminophen 325 Mg Tablet PO 650 mg Q6H PRN Administration Pain, Mild (Pain Scale 1-3) Amlodipine Besylate 5 mg 10/30/20 09:00 10/31/20 08:01 Amlodipine Besylate 5 Mg Tablet PO 5 mg DAILY MERLE Administration Protocol Docusate Sodium 100 mg 10/30/20 00:30 Docusate Sodium 100 Mg Capsule PO DAILY PRN Constipation Enoxaparin Sodium 40 mg 10/30/20 01:00 10/31/20 01:34 Enoxaparin Sodium 40 Mg/0.4 Ml Syringe SUBCUT 40 mg Q24H MERLE Administration Ceftriaxone Sodium 1 gm/ 50 mls @ 100 mls/hr 10/30/20 08:00 10/31/20 08:01 Sodium Chloride IV 100 mls/hr Q24H MERLE Administration Dextrose/Sodium Chloride 1,000 mls @ 100 mls/hr 10/30/20 12:00 10/31/20 08:05 D5ns IVCONT Not Given .Q10H MERLE Insulin Human Lispro 0 unit 10/30/20 07:30 10/31/20 08:01 Insulin Lispro 100 Unit/Ml 3 Ml Vial SUBCUT 4 unit QIDACHS [facility] Administration Protocol Morphine Sulfate 2 mg 10/30/20 12:08 Morphine Sulfate 2 Mg/Ml Cartridge IVPUSH Q6H PRN Pain, Severe (Pain Scale 7-10) Ondansetron HCl 4 mg 10/30/20 00:30 Ondansetron Hcl 4 Mg/2 Ml Vial IVPUSH Q8H PRN Nausea and Vomiting Sodium Chloride 3 ml 10/30/20 08:00 10/31/20 08:01 0.9 % Sodium Chloride Flush 3 Ml Syringe IVFLUSH Not Given QSHIFT [facility] Tamsulosin HCl 0.4 mg 10/30/20 09:00 10/31/20 08:01 Tamsulosin Hcl 0.4 Mg Capsule PO 0.4 mg DAILY [facility] Administration Labs CBC & Chem 7: 10/31/20 04:30 10/31/20 04:30 Labs: Laboratory Results - last 24 hr 10/30/20 10/30/20 10/30/20 10:17 11:01 11:33 WBC RBC Hgb Hct MCV MCH MCHC RDW Plt Count MPV Immature Gran % (Auto) Neut % (Auto) Lymph % (Auto) [place] % (Auto) Eos % (Auto) Baso % (Auto) Lymph # (Auto) [place] # (Auto) Eos # (Auto) Baso # (Auto) Abs Immat Gran (auto) Absolute Neuts (auto) Absolute Nucleated RBC Nucleated RBC % (auto) Sodium 139 Potassium 5.1 Chloride 108 Carbon Dioxide 21 L Anion Gap 15 BUN 56 H Creatinine 4.25 H* Estim Creat Clear Calc 24.4 Estimated GFR 14 POC Glucose 179 H 145 H Random Glucose 179 H Calcium 8.7 10/30/20 10/30/20 10/31/20 16:05 19:57 04:30 WBC 10.0 RBC 3.17 L Hgb 9.6 L Hct 29.4 L MCV 92.7 MCH 30.3 MCHC 32.7 RDW 12.2 Plt Count 229 MPV 11.5 Immature Gran % (Auto) 0.4 Neut % (Auto) 68.3 Lymph % (Auto) 20.5 [place] % (Auto) 8.4 Eos % (Auto) 1.9 Baso % (Auto) 0.5 Lymph # (Auto) 2.0 [place] # (Auto) 0.8 Eos # (Auto) 0.2 Baso # (Auto) 0.1 Abs Immat Gran (auto) 0.04 H Absolute Neuts (auto) 6.8 Absolute Nucleated RBC 0.000 Nucleated RBC % (auto) 0.0 Sodium Potassium Chloride Carbon Dioxide Anion Gap BUN Creatinine Estim Creat Clear Calc Estimated GFR POC Glucose 282 H 184 H Random Glucose Calcium 10/31/20 10/31/20 04:30 07:10 WBC RBC Hgb Hct MCV MCH MCHC RDW Plt Count MPV Immature Gran % (Auto) Neut % (Auto) Lymph % (Auto) [place] % (Auto) Eos % (Auto) Baso % (Auto) Lymph # (Auto) [place] # (Auto) Eos # (Auto) Baso # (Auto) Abs Immat Gran (auto) Absolute Neuts (auto) Absolute Nucleated RBC Nucleated RBC % (auto) Sodium 139 Potassium 4.2 Chloride 110 H Carbon Dioxide 21 L Anion Gap 12 BUN 39 H Creatinine 3.07 H Estim Creat Clear Calc 33.0 Estimated GFR 21 POC Glucose 235 H Random Glucose 270 H D Calcium 8.6 Microbiology Microbiology Results: Microbiology 10/30/20 02:05 Blood Culture - Preliminary Blood - Venous No growth after 24 hours. 10/30/20 02:05 Blood Culture - Preliminary Blood - Venous No growth after 24 hours. Assessment and Plan (1) Bladder outlet obstruction: Status: Acute (2) Pyelonephritis: Status: Acute (3) Acute on chronic kidney failure: Status: Acute (4) Acute hyperkalemia: Status: Acute Assessment and Plan: 60-year-old male with past medical history of hypertension noncompliant with medication, and recently diagnosed diabetes not on medication who presents to the hospital complaining of nocturia, urinary retention and and JOSEE # JOSEE likey from obstructive uropathy, on top of possible CKD, Creatinine is better 4.25 (10/30), 3.07(10/31) - patient was seen in the ED on October 20 with a creatinine function of 2.57, returns 10/29 with a creatinine of 4.22 - most likely multifactorial secondary to bladder outlet obstruction as well as UTI/pyelonephritis - unclear what his baseline was prior to October -Maintain Brown -Continue IVF but change to 1/2 NS # nocturia - most likely secondary to BPH/bladder outlet obstruction - Urology is following, and started on Flomax # pyelonephritis - has leukocytosis, afebrile - has urinary frequency -Continue Ceftriaxone, culture pending - follow cultures # hypertension - not compliant with medications - Increase Norvasc to 10 # bladder outlet obstruction - started on Flomax - urology consulted # diabetes--Non-compliant with meds -start Lantus this morning, -continue Sliding Scale - will start him on low-dose sliding scale insulin - hemoglobin A1c = 10 - diabetic diet - may need to be started on p.o. medications prior to discharge DVT prophylaxis: [employer] Stroke Does the patient have a stroke diagnosis?: No VTE Prior VTE?: No VTE Risk Level:: Medical - moderate - high VTE Device Contraindication: Treatment Not Indicated VTE Drug Contraindication: N/A - Med Ordered
[2020-10-31 11:00] VITALS: BP 148/69; PULSE 89; RESP 18; TEMP 36.6; O2SAT 98
[2020-10-31 11:08] LABS: Glucose, Whole Blood 193 mg/dL (60-115)
--- NOTE | 2020-10-31 11:11 | PM.PNNEP ---
Subjective Subjective Date of Service: 10/31/20 Interval history: Seen in /fu for MARCUS, obstructive uropathy, Pyelo Physical Exam Vital Signs: Vital Signs: Last Vital Signs Temp 97.8 F 10/31/20 11:00 Pulse 89 10/31/20 11:00 Resp 18 10/31/20 11:00 BP 148/69 H 10/31/20 11:00 Pulse Ox 98 10/31/20 11:00 Body Mass Index 34.6 VITAL SIGNS: Reviewed. GENERAL: Well developed, well nourished, anxious. HEAD: Normocephalic/atraumatic EYES: PERRLA, EOMI without nystagmus EARS: Ext canals without abnormality, TMs non-bulging and non-erythematous NOSE: Nares patent bilateral OROPHARYNX: no oral lesions noted, posterior pharynx clear, dry mucosa NECK: Supple, no adenopathy LUNGS: Normal breath sounds. No adventitious sounds or accessory muscle use. SpO2<98> CARDIOVASCULAR: Regular rate and rhythm without noted murmurs, no JVD or lower extremity edema. ABDOMEN: Soft, non-tender, non-distended with bowel sounds. MUSCULOSKELETAL: No tenderness, deformities, or effusions noted on gross inspection. EXTREMITIES: No cyanosis, clubbing or edema. SKIN: Inspection of the skin reveals no rashes NEUROLOGIC: Alert and oriented x 4. Strength and sensation to light touch were grossly intact x 4, some tremulousness Objective Data Labs CBC & Chem 7: 10/31/20 04:30 10/31/20 04:30 Labs: Laboratory Results - last 24 hr 10/30/20 10/30/20 10/30/20 11:01 11:33 16:05 WBC RBC Hgb Hct MCV MCH MCHC RDW Plt Count MPV Immature Gran % (Auto) Neut % (Auto) Lymph % (Auto) [place] % (Auto) Eos % (Auto) Baso % (Auto) Lymph # (Auto) [place] # (Auto) Eos # (Auto) Baso # (Auto) Abs Immat Gran (auto) Absolute Neuts (auto) Absolute Nucleated RBC Nucleated RBC % (auto) Sodium Potassium Chloride Carbon Dioxide Anion Gap BUN Creatinine Estim Creat Clear Calc Estimated GFR POC Glucose 179 H 145 H 282 H Random Glucose Calcium 10/30/20 10/31/20 10/31/20 19:57 04:30 04:30 WBC 10.0 RBC 3.17 L Hgb 9.6 L Hct 29.4 L MCV 92.7 MCH 30.3 MCHC 32.7 RDW 12.2 Plt Count 229 MPV 11.5 Immature Gran % (Auto) 0.4 Neut % (Auto) 68.3 Lymph % (Auto) 20.5 [place] % (Auto) 8.4 Eos % (Auto) 1.9 Baso % (Auto) 0.5 Lymph # (Auto) 2.0 [place] # (Auto) 0.8 Eos # (Auto) 0.2 Baso # (Auto) 0.1 Abs Immat Gran (auto) 0.04 H Absolute Neuts (auto) 6.8 Absolute Nucleated RBC 0.000 Nucleated RBC % (auto) 0.0 Sodium 139 Potassium 4.2 Chloride 110 H Carbon Dioxide 21 L Anion Gap 12 BUN 39 H Creatinine 3.07 H Estim Creat Clear Calc 33.0 Estimated GFR 21 POC Glucose 184 H Random Glucose 270 H D Calcium 8.6 10/31/20 10/31/20 07:10 10:59 WBC RBC Hgb Hct MCV MCH MCHC RDW Plt Count MPV Immature Gran % (Auto) Neut % (Auto) Lymph % (Auto) [place] % (Auto) Eos % (Auto) Baso % (Auto) Lymph # (Auto) [place] # (Auto) Eos # (Auto) Baso # (Auto) Abs Immat Gran (auto) Absolute Neuts (auto) Absolute Nucleated RBC Nucleated RBC % (auto) Sodium Potassium Chloride Carbon Dioxide Anion Gap BUN Creatinine Estim Creat Clear Calc Estimated GFR POC Glucose 235 H 193 H Random Glucose Calcium Microbiology Microbiology Results: Microbiology 10/30/20 Unknown Urine clean catch - Clean Catch Midstream Urine Culture - Final 10/30/20 02:05 Blood - Venous Blood Culture - Preliminary No growth after 24 hours. 10/30/20 02:05 Blood - Venous Blood Culture - Preliminary No growth after 24 hours. Procedures Date of Service Date of Service: 10/31/20 Assessment & Plan Time Spent With Patient Time: . Marcus CKD ? 3 Hyperkalemia S/p New bonilla Watch for Post obst Diuresis with increased creat IVF NS at 125 ml/ hr started Check labs / Divalent in AM Total time spent is greater than 50% in coordination of care (as documented) at patient's floor/unit and/or counseling patient: Progress Note: Quality Stroke Does the patient have a stroke diagnosis?: No
[2020-10-31] MEDS: 0.9 % Sodium Chloride 1,000 ML 125 ML IVCONT ×2 (11:21→21:36)
--- NOTE | 2020-10-31 12:58 | CONS_ITS ---
DATE OF SERVICE: 10/30/2020 REASON FOR CONSULTATION: Consult requested by the medical team to evaluate and help in management of patient with renal insufficiency and hyperkalemia. HISTORY OF PRESENT ILLNESS: The patient is a 60-year-old male, who was recently diagnosed to have diabetes, not on medication; history of hypertension, for which he was prescribed medications and has not been taking medication, presented to the hospital ER with abnormal labs. He had abnormal kidney function. He saw his primary care physician 2 weeks ago for urinary frequency. He apparently has been having nocturia multiple times. There was no dysuria. He had some lower extremity swelling for the last 2 weeks. There was no orthopnea or PND. He has had decreased appetite. He does give history of taking Motrin 1 tablet for the last few days. He denies any abdominal pain, nausea, or vomiting. There was no chills, fever, headache, vision changes, shortness of breath, chest pain. On arrival to the ER, the patient was hemodynamically stable, in fact his blood pressure was elevated around 160s. His potassium was 5.4 and his BUN and creatinine was 57/4.2. His creatinine in October was 2.57. UA was positive for leukocyte esterase and WBCs. Abdominal and pelvic CT showed moderate to severe right and moderate left hydronephrosis, but bilateral hydroureter with markedly distended bladder. There was also marked prostatomegaly. The patient passed about 500 mL of urine and a Brown was placed and it is unclear how much urine came out. Presently, he has a Brown with a bag having hematuria without much urine in it. He complains of pain at the Brown insertion site. REVIEW OF SYSTEMS: As noted above. Other systems were reviewed, negative. PAST MEDICAL HISTORY: Includes history of hypertension with longstanding, for which he is not on medication on a regular basis; history of type 2 diabetes mellitus, and likely chronic kidney disease with a creatinine of around 2.57. I do not have creatinine level from the past and we need to get those creatinines. PERSONAL AND SOCIAL HISTORY: The patient never took alcohol. Never smoked. Does not use drugs. ALLERGIES: THE PATIENT HAS ALLERGIES TO PENICILLIN. HOME MEDICATION: None. PHYSICAL EXAMINATION: GENERAL: The patient is resting in the bed, uncomfortable due to the Brown. VITAL SIGNS: Blood pressure was 164/96, pulse 85, afebrile. HEENT: Shows pupils equal bilaterally and reactive to light. No jugular venous distention is noted. NECK: Supple. CARDIOVASCULAR SYSTEM: S1, S2 without rub. RESPIRATORY SYSTEM: Air entry decreased in the bases. ABDOMEN: Obese, soft with suprapubic tenderness. No guarding. No rigidity. There was Brown in the noted with some bleeding around the penis. EXTREMITIES: Showed 1+ edema. NEURO: Essentially nonfocal. LABORATORY DATA: Labs done today. WBC 11.9, hemoglobin 11.6, hematocrit 34.4, platelets 271. Sodium 139, potassium 5.4, chloride 107, bicarb 17, BUN 57, creatinine 4.22, lipase 167. Urinalysis showed straw-colored urine, specific gravity 1.010, protein negative, glucose 100, ketone negative, rbc's 0 to 2, wbc's 5 to 9. Urine sodium was 44, urine protein less than 7. IMPRESSION: 1. A 60-year-old male with acute kidney injury. Acute kidney injury due to obstructive uropathy at the bladder neck area based on the CT scan. He was on Motrin, which could have contributed to worsening renal function. 2. Question of chronic kidney disease stage 3 at baseline. I do not have exact baseline creatinine at this juncture in the setting of longstanding diabetes and hypertension with possible chronic obstructive uropathy. 3. Bilateral hydronephrosis, hydroureter with enlarged prostate. 4. Urinary tract infection. 5. Uncontrolled hypertension. RECOMMENDATIONS: At this juncture, I would recommend getting Urology and placing a 3-way Brown catheter as he has blood clots and could have obstruction of the Brown due to the blood clot. We did try to flush the Brown and it did not work out. I recommend discontinuing the present IV fluids as lactated Ringer's solution has potassium in it and I have changed him over to D5 half-normal saline. His potassium level has already improved and he need to be on low-potassium diet. We can give Kayexalate for potassium above 4.5. I recommend checking a bladder scan again to check for the urine volume. ADDENDUM: I agree with starting the patient on Flomax. We should consider holding off on the Lovenox if he continues to bleed/have hematuria. Thank you for allowing me to participate in the medical management of the patient. MD IVIS Boykin/DILIA / [phone]
--- NOTE | 2020-10-31 13:24 | MHC.CM.PN ---
Male 60 DX JOSEE CKD Hyperkalemia Pt independent. DP Home no services. Car in lot. May drive himself home at discharge. CM will follow.
[2020-10-31 15:08] VITALS: BP 127/79; PULSE 92; RESP 20; TEMP 36.7; O2SAT 99
[2020-10-31 16:00] LABS: Glucose, Whole Blood 201 mg/dL (60-115)
[2020-10-31 19:06] VITALS: BP 178/91; PULSE 93; RESP 20; TEMP 36.7; O2SAT 99
[2020-10-31 20:02] LABS: Glucose, Whole Blood 171 mg/dL (60-115)
[2020-10-31] MEDS: Docusate Sodium 100 MG CAPSULE PO (21:39)
[2020-11-01] VITALS (7 sets, daily range): BP systolic 135–166; BP diastolic 51–86; PULSE 57–97; RESP 17–20; TEMP 36.6–37.1; O2SAT 98–99
[2020-11-01] MEDS: Enoxaparin Sodium 40 MG/0.4 ML SYRINGE SUBCUT (02:11)
[2020-11-01] MEDS: 0.9 % Sodium Chloride 1,000 ML 125 ML IVCONT ×3 (05:12→20:54)
[2020-11-01 07:47] LABS: Glucose, Whole Blood 161 mg/dL (60-115)
[2020-11-01] MEDS: Tamsulosin HCL 0.4 MG CAPSULE PO (08:17)
[2020-11-01] MEDS: Insulin Lispro 100 UNIT/ML 3 ML VIAL SUBCUT ×4 (08:17→20:54)
[2020-11-01] MEDS: cefTRIAXone sodium 1 GM in 0.9 % Sodium Chloride 50 ML IV (08:22)
[2020-11-01] MEDS: amLODIPine Besylate 5 MG TABLET PO (08:23)
--- NOTE | 2020-11-01 09:00 | HO.PM.IMPN ---
Subjective Subjective Date of Service: 11/01/20 Interval History: Seen in /fu for JOSEE, obstructive uropathy, Pyelo, creatinine is better Physical Exam Vital Signs: Vital Signs: Last Vital Signs Temp 98.3 F 11/01/20 08:00 Pulse 89 11/01/20 08:00 Resp 19 11/01/20 08:00 BP 158/78 H 11/01/20 08:00 Pulse Ox 99 11/01/20 08:00 Body Mass Index 34.6 Const: General: cooperative and no acute distress Orientation/consciousness: patient oriented x3 Eyes: General: appearance normal, both eyes and all related structures Resp: Effort & Inspection: normal respiratory effort and able to speak in complete sentences Cardio: Rate: regular rate Rhythm: regular rhythm GI: Palpation (GI): Soft to palpation Auscultation: normal bowel sounds : Other: Right CVA tenderness Skin: General skin exam: no rashes or lesions noted Neuro: General: patient oriented x3 Cognition (Neuro): normal cognition Extrem: Other: 1+ pedal edema bilaterally General: Yes normal to inspection Objective Data Current Medications Generic Name Dose Route Start Last Admin Trade Name Manjinderq PRN Reason Stop Dose Admin Acetaminophen 650 mg 10/30/20 00:30 10/31/20 21:32 Acetaminophen 325 Mg Tablet PO 650 mg Q6H PRN Administration Pain, Mild (Pain Scale 1-3) Amlodipine Besylate 5 mg 10/30/20 09:00 11/01/20 08:23 Amlodipine Besylate 5 Mg Tablet PO 5 mg DAILY MERLE Administration Protocol Docusate Sodium 100 mg 10/30/20 00:30 10/31/20 21:39 Docusate Sodium 100 Mg Capsule PO 100 mg DAILY PRN Administration Constipation Enoxaparin Sodium 40 mg 10/30/20 01:00 11/01/20 02:11 Enoxaparin Sodium 40 Mg/0.4 Ml Syringe SUBCUT 40 mg Q24H MERLE Administration Ceftriaxone Sodium 1 gm/ 50 mls @ 100 mls/hr 10/30/20 08:00 11/01/20 08:52 Sodium Chloride IV Infused Q24H MERLE Infusion Sodium Chloride 1,000 mls @ 125 mls/hr 10/31/20 11:30 11/01/20 05:12 Ns IVCONT 125 mls/hr .Q8H MERLE Administration Insulin Human Lispro 0 unit 10/30/20 07:30 11/01/20 08:17 Insulin Lispro 100 Unit/Ml 3 Ml Vial SUBCUT 2 unit QIDACHS [facility] Administration Protocol Morphine Sulfate 2 mg 10/30/20 12:08 Morphine Sulfate 2 Mg/Ml Cartridge IVPUSH Q6H PRN Pain, Severe (Pain Scale 7-10) Ondansetron HCl 4 mg 10/30/20 00:30 Ondansetron Hcl 4 Mg/2 Ml Vial IVPUSH Q8H PRN Nausea and Vomiting Sodium Chloride 3 ml 10/30/20 08:00 11/01/20 07:32 0.9 % Sodium Chloride Flush 3 Ml Syringe IVFLUSH Not Given QSHIFT [facility] Tamsulosin HCl 0.4 mg 10/30/20 09:00 11/01/20 08:17 Tamsulosin Hcl 0.4 Mg Capsule PO 0.4 mg DAILY [facility] Administration Labs CBC & Chem 7: 10/31/20 04:30 11/01/20 08:36 Labs: Laboratory Results - last 24 hr 10/31/20 10/31/20 10/31/20 10:59 15:55 19:56 POC Glucose 193 H 201 H 171 H 11/01/20 07:16 POC Glucose 161 H Microbiology Microbiology Results: Microbiology 10/30/20 02:05 Blood Culture - Preliminary Blood - Venous No growth after 48 hours. 10/30/20 02:05 Blood Culture - Preliminary Blood - Venous No growth after 48 hours. 10/30/20 Unknown Urine Culture - Final Urine clean catch - Clean Catch Midstream Assessment and Plan (1) Bladder outlet obstruction: Status: Acute (2) Acute on chronic kidney failure: Status: Acute (3) Acute hyperkalemia: Status: Acute Assessment and Plan: 60-year-old male with past medical history of hypertension noncompliant with medication, and recently diagnosed diabetes not on medication who presents to the hospital complaining of nocturia, urinary retention and and JOSEE # JOSEE likey from obstructive uropathy, on top of possible CKD, Creatinine is better 4.25 (10/30), 3.07(10/31), 2.06 (11/01) - patient was seen in the ED on October 20 with a creatinine function of 2.57, returns 10/29 with a creatinine of 4.22 - most likely multifactorial secondary to bladder outlet obstruction as well as UTI/pyelonephritis - unclear what his baseline was prior to October -Maintain Brown -Continue IVF but change to 1/2 NS -daily BMP # nocturia - most likely secondary to BPH/bladder outlet obstruction - Urology is following, and started on Flomax #? pyelonephritis, UA was unimprresive with trace leuk esterase only, normal WBC, no bacteria, -DC Abx # hypertension - not compliant with medications - Increase Norvasc to 10 # bladder outlet obstruction - started on Flomax -Continue Flomax - urology consulted # diabetes--Non-compliant with meds -start Lantus this morning, -continue Sliding Scale - Diabetes--continue insulin - hemoglobin A1c = 10 - diabetic diet -glipizide at discharge DVT prophylaxis: Lovenox Quality Stroke Does the patient have a stroke diagnosis?: No VTE Prior VTE?: No VTE Risk Level:: Medical - moderate - high VTE Device Contraindication: Treatment Not Indicated VTE Drug Contraindication: N/A - Med Ordered
[2020-11-01 09:29] LABS: Anion Gap 13 (12-20); Blood Urea Nitrogen 18 mg/dL (9-16); Calcium 8.6 mg/dL (8.4-10.2); Carbon Dioxide 23 mmol/L (22-29); Chloride 107 mmol/L (96-108); Creatinine Clr Calc Pharmacy 49.2; Estimated Glomerular Filt Rate 33; Glucose Random 255 mg/dL (60-115); Sodium 139 mmol/L (135-145)
[2020-11-01 11:39] LABS: Glucose, Whole Blood 165 mg/dL (60-115)
--- NOTE | 2020-11-01 13:05 | PM.PNNEP ---
Subjective Subjective Date of Service: 11/01/20 Interval history: Seen in /fu for MARCUS, obstructive uropathy, Pyelo, creatinine is better Physical Exam Vital Signs: Vital Signs: Last Vital Signs Temp 98.7 F 11/01/20 11:22 Pulse 90 11/01/20 11:22 Resp 20 11/01/20 11:22 BP 166/84 H 11/01/20 11:22 Pulse Ox 98 11/01/20 11:22 Body Mass Index 34.6 Const General:?cooperative and no acute distress Orientation/consciousness:?patient oriented x3 Eyes General:?appearance normal, both eyes and all related structures Resp Effort & Inspection:?normal respiratory effort and able to speak in complete sentences Cardio Rate:?regular rate Rhythm:?regular rhythm GI Palpation (GI):?Soft to palpation Auscultation:?normal bowel sounds Other:?Right CVA tenderness Skin General skin exam:?no rashes or lesions noted Neuro General:?patient oriented x3 Cognition (Neuro):?normal cognition Extrem Other:?1+ pedal edema bilaterally General:?Yes normal to inspection Objective Data Labs CBC & Chem 7: 10/31/20 04:30 11/01/20 08:36 Labs: Laboratory Results - last 24 hr 10/31/20 10/31/20 11/01/20 15:55 19:56 07:16 Sodium Potassium Chloride Carbon Dioxide Anion Gap BUN Creatinine Estim Creat Clear Calc Estimated GFR POC Glucose 201 H 171 H 161 H Random Glucose Calcium 11/01/20 11/01/20 08:36 11:25 Sodium 139 Potassium 4.0 Chloride 107 Carbon Dioxide 23 Anion Gap 13 BUN 18 H D Creatinine 2.06 H Estim Creat Clear Calc 49.2 Estimated GFR 33 POC Glucose 165 H Random Glucose 255 H Calcium 8.6 Microbiology Microbiology Results: Microbiology 10/30/20 02:05 Blood - Venous Blood Culture - Preliminary No growth after 48 hours. 10/30/20 02:05 Blood - Venous Blood Culture - Preliminary No growth after 48 hours. 10/30/20 Unknown Urine clean catch - Clean Catch Midstream Urine Culture - Final Procedures Date of Service Date of Service: 11/01/20 Assessment & Plan Time Spent With Patient Time: Marcus CKD ? 3 Hyperkalemia keep Brown Renal func is better Flomax Urology f/u Can d/c IVF Cam be d/c'd home and we will follow as out pt if he is able to take adequate PO Check labs / Divalent in AM Total time spent is greater than 50% in coordination of care (as documented) at patient's floor/unit and/or counseling patient: Progress Note: Quality Stroke Does the patient have a stroke diagnosis?: No
[2020-11-01] MEDS: Docusate Sodium 100 MG CAPSULE PO (13:14)
[2020-11-01 16:04] LABS: Glucose, Whole Blood 226 mg/dL (60-115)
[2020-11-01 20:15] LABS: Glucose, Whole Blood 204 mg/dL (60-115)
[2020-11-01] MEDS: Acetaminophen 325 MG TABLET 650 MG PO (20:53)
[2020-11-02 03:35] VITALS: BP 136/79; PULSE 79; RESP 18; TEMP 36.9; O2SAT 98
[2020-11-02] MEDS: 0.9 % Sodium Chloride 1,000 ML 125 ML IVCONT ×2 (04:17→12:53)
[2020-11-02 07:25] VITALS: BP 154/86; PULSE 83; RESP 18; TEMP 36.7; O2SAT 99
[2020-11-02 07:48] LABS: Glucose, Whole Blood 178 mg/dL (60-115)
[2020-11-02] MEDS: amLODIPine Besylate 5 MG TABLET PO (08:10)
[2020-11-02] MEDS: cefTRIAXone sodium 1 GM in 0.9 % Sodium Chloride 50 ML IV (08:10)
[2020-11-02] MEDS: Insulin Lispro 100 UNIT/ML 3 ML VIAL SUBCUT ×3 (08:10→17:01)
[2020-11-02] MEDS: Tamsulosin HCL 0.4 MG CAPSULE PO (08:10)
--- NOTE | 2020-11-02 09:02 | P.PNNP_ITS ---
Subjective Subjective Date of Service: 11/02/20 Interval history: Seen in /fu for JOSEE, obstructive uropathy, Cr is stable Pt sitting up in the chair and feels better ? I and O is not true Physical Exam Vital Signs: Vital Signs: Last Vital Signs Temp 98.0 F 11/02/20 07:25 Pulse 83 11/02/20 07:25 Resp 18 11/02/20 07:25 BP 154/86 H 11/02/20 07:25 Pulse Ox 99 11/02/20 07:25 Body Mass Index 34.6 Const General:?cooperative and no acute distress Orientation/consciousness:?patient oriented x3 Eyes General:?appearance normal, both eyes and all related structures Resp Effort & Inspection:?normal respiratory effort and able to speak in complete sen tences Cardio Rate:?regular rate Rhythm:?regular rhythm GI Palpation (GI):?Soft to palpation Auscultation:?normal bowel sounds Other:?Right CVA tenderness Skin General skin exam:?no rashes or lesions noted Neuro General:?patient oriented x3 Cognition (Neuro):?normal cognition Extrem Other:?1+ pedal edema bilaterally General:?Yes normal to inspection Objective Data Labs CBC & Chem 7: 10/31/20 04:30 11/01/20 08:36 Labs: Laboratory Results - last 24 hr 11/01/20 11/01/20 11/01/20 08:36 11:25 15:58 Sodium 139 Potassium 4.0 Chloride 107 Carbon Dioxide 23 Anion Gap 13 BUN 18 H D Creatinine 2.06 H Estim Creat Clear Calc 49.2 Estimated GFR 33 POC Glucose 165 H 226 H Random Glucose 255 H Calcium 8.6 11/01/20 11/02/20 20:03 07:26 Sodium Potassium Chloride Carbon Dioxide Anion Gap BUN Creatinine Estim Creat Clear Calc Estimated GFR POC Glucose 204 H 178 H Random Glucose Calcium Microbiology Microbiology Results: Microbiology 10/30/20 02:05 Blood - Venous Blood Culture - Preliminary No growth after 48 hours. 10/30/20 02:05 Blood - Venous Blood Culture - Preliminary No growth after 48 hours. 10/30/20 Unknown Urine clean catch - Clean Catch Midstream Urine Culture - Final Procedures Date of Service Date of Service: 11/02/20 Assessment & Plan Time Spent With Patient Time: Ki CKD ? 3 Hyperkalemia keep Brown Renal func is better Flomax Urology f/u as out pt On IVF ( -ve 6 liters) Cam be d/c'd home and we will follow as out pt if he is able to take adequate PO We albert see pt in the office if D/c'd Check labs / Divalent in AM Total time spent is greater than 50% in coordination of care (as documented) at patient's floor/unit and/or counseling patient: Progress Note: Quality Stroke Does the patient have a stroke diagnosis?: No
[2020-11-02 10:57] VITALS: BP 145/74; PULSE 93; RESP 20; TEMP 36.8; O2SAT 99
[2020-11-02 11:15] LABS: Glucose, Whole Blood 186 mg/dL (60-115)
[2020-11-02 11:45] LABS: Anion Gap 14 (12-20); Blood Urea Nitrogen 14 mg/dL (9-16); Calcium 8.7 mg/dL (8.4-10.2); Carbon Dioxide 23 mmol/L (22-29); Chloride 108 mmol/L (96-108); Creatinine Clr Calc Pharmacy 56.1; Estimated Glomerular Filt Rate 39; Glucose Random 200 mg/dL (60-115); Sodium 141 mmol/L (135-145)
[2020-11-02] MEDS: Docusate Sodium 100 MG CAPSULE PO (11:54)
[2020-11-02 13:09] VITALS: BP 145/74; PULSE 93; O2SAT 99
--- NOTE | 2020-11-02 14:45 | P.DS_ITS ---
DS: Providers Provider Date of Service: 10/03/20 Date of admission: 10/30/20 00:27 Primary care physician: Gisela Dugan MD Consults: 10/30/20 00:30 Consult to Nephrology Routine Consulting Provider: [facility] Reason for consultation: JOSEE on CKD Has provider been notified: Yes 10/30/20 06:43 Consult to Urology Routine Consulting Provider: Ben Batista Reason for consultation: bladder oulet obstruction Has provider been notified: No 10/30/20 06:49 Consult to Nephrology Routine Consulting Provider: [facility] Reason for consultation: JOSEE Has provider been notified: No DS: Diagnosis Discharge Diagnosis (1) Bladder outlet obstruction: Status: Acute (2) Acute on chronic kidney failure: Status: Acute (3) Acute hyperkalemia: Status: Acute (4) Diabetes: Status: Acute DS: Medications Discharge Medications Home Medications: Previous Rx's Medication Instructions Recorded ibuprofen 600 mg tablet 600 mg PO TID #30 tab 10/18/20 amlodipine 5 mg tablet 5 mg PO DAILY #30 tab 10/20/20 DS: Summary Hospital Course Hospital Course: 60-year-old male who was recently diagnosed with diabetes not on medications, and history of hypertension who presents to the hospital stating that his labs today showed abnormal kidney function and therefore was asked by his PCP to come to the hospital.? Patient reports that about 2 weeks ago he saw due to urinary frequency and they did labs that showed he was diabetic but patient was not started on any medications pending visit with his PCP.? He had an appointm ent with his PCP coming up in early November but labs today showed abnormal kidney function and therefore was referred to come to the hospital.? His urinary frequency is mostly at nighttime. Patient reports urinary frequency, urgency with no dysuria for the past 2 weeks, he also reports lower extremity swelling for the past 2 weeks with no dyspnea, no orthopnea or PND, he reports that he had low appetite last week but his appetite is improving but is not back to his baseline.? He denies any abdominal pain but reports nausea and vomiting today.? No chills, no fever.? No headache, change in vision, no shortness of breath, no chest pain, no weakness numbness or tingling. On arrival to the ED patient hemodynamically stable with blood pressure of 168/86, For WBC count of 11.8, hemoglobin of 12.4, potassium of 5.4, BUN of 57 and creatinine of 4.2 as compared to BUN of 22 and creatinine of 2.57 on October 20, UA positive for leukocyte Estrace and WBC Pelvic she has T showed moderate to severe right and moderate left hydronephrosis and bilateral hydroureter to the markedly distended bladder, there is marked prostatomegaly, these changes likely pertain to bladder outlet obstruction right perinephric and periurethral fat stranding which could worsen superimposed pyelonephritis, Past medical history as below and confirmed as patient. Hospital course: Patient admitted for josee ? if has ckd -given IV hydration, also found to have bladder outlet obstruction: seems improving, with for p.o. hydration, avoid medications that can effect renal function including Nsaid's /ibuprofen. Seen by Urology: Patient will need outpatient follow-up and will go home with urine catheter. Monitor BMP closely with PCP. pyuria: Does not have any bacteria in the urine, urine culture noncontributory culture,asymptomatic. off antibiotics . If any new symptoms patient was told to come back toto ED. Ed. bladder outlet obstruction: continue Flomax and finasteride. Patient will go with urine bag. diabetes--Non-compliant with meds: added glipizide upon discharge. Patient needs to follow-up with his PCP, Nephrology Dr mccarthy will arrange their appointment, urology Dr Batista urology. Monitor BMP patiently [facility] pcp. Time Spent with Patient Time attestation: Total time spent providing and/or coordinating discharge services: Discharge coordination time: Greater than 30 minutes Quality: Stroke Does the patient have a stroke diagnosis?: No Physical Exam Vital Signs: Vital Signs: Last Vital Signs Temp 98.2 F 11/02/20 10:57 Pulse 93 11/02/20 13:09 Resp 20 11/02/20 10:57 BP 145/74 H 11/02/20 13:09 Pulse Ox 99 11/02/20 13:09 Body Mass Index 34.6 Physical exam: Const:?? General: cooperati ve and no acute di stress? Orientatio n/consciousness: p atient oriented x3 Eyes:?? General: appearanc e normal, both eye s and all related structures Resp:?? normal respirator y effort and able to speak in comple te sentences Cardio:?? regular rate? Rhy thm: regular rhyth m GI:?? Soft to palpation? Auscultation: nor mal bowel sounds :?? no tenderness Skin:?? no rashes or lesi ons noted Neuro:?? patient oriented x3? Cognition (Jh ro): normal cognit ion Extrem:?? 1+ pedal edema bi laterally? General : Yes normal to in spection DS: Data Data Completed and Pending Labs on day of discharge: Laboratory Results - last 24 hr 11/01/20 11/01/20 11/02/20 15:58 20:03 07:26 Sodium Potassium Chloride Carbon Dioxide Anion Gap BUN Creatinine Estim Creat Clear Calc Estimated GFR POC Glucose 226 H 204 H 178 H Random Glucose Calcium 11/02/20 11/02/20 10:52 11:00 Sodium 141 Potassium 4.0 Chloride 108 Carbon Dioxide 23 Anion Gap 14 BUN 14 Creatinine 1.81 H Estim Creat Clear Calc 56.1 Estimated GFR 39 POC Glucose 186 H Random Glucose 200 H Calcium 8.7 Preliminary micro results at discharge 10/30/20 02:05 Blood Culture - Preliminary Blood - Venous No growth after 48 hours. 10/30/20 02:05 Blood Culture - Preliminary Blood - Venous No growth after 48 hours. Discharge Plan Discharge Patient Disposition: Home Health Service Discharge Diagnosis: uti, bladder outlet obstruction,dm Referrals: Natan Mccarthy MD [Physician] - 1 Week (follow up in 2weeks.) Ben Batista MD [Physician] - 1 Week (follow up in 2 weeks.) Gisela Dugan MD [Primary Care Provider] - 1 Week Discharge Medications: New tamsulosin 0.4 mg Capsule 0.4 mg PO DAILY Qty: 30 RF: 0 finasteride 5 mg tablet 5 mg PO DAILY Qty: 30 RF: 0 glipizide 5 mg tablet 2.5 mg PO DAILY Qty: 30 RF: 0 (DME) blood-glucose meter [FreeStyle Lite Meter] Kit See Rx Instructions .ROUTE .MEDSUPPLY Qty: 1 RF: 0 (DME) FreeStyle Lite Strips Strip See Rx Instructions .Route Qty: 100 RF: 0 (DME) lancets [FreeStyle Lancets] 28 gauge misc See Rx Instructions .ROUTE .MEDSUPPLY Qty: 100 RF: 0 Continued amlodipine 5 mg tablet 5 mg PO DAILY Qty: 30 RF: 0 Discontinued ibuprofen 600 mg tablet 600 mg PO TID Qty: 30 RF: 0 Discharge Orders: Discharge Order (Routine); Ordered 11/02/20 Ordered By: Fuad Melgoza Diet: advance to usual diet, low fat, low cholesterol and low salt diet Activity on Discharge: As tolerated Stand Alone Forms: Patient Portal Discharge page Other Ambulatory Orders: Basic Metabolic Panel Fasting (Routine) Timeframe: 3 Days Facility: [facility] - Location: Laboratory Ordered By: Fuad Melgoza Complete Blood Count no Diff (Routine) Timeframe: 3 Days Facility: [facility] - Location: Laboratory Ordered By: Fuad Melgoza Care Plan Goals: josee ? if has ckd -seems improving, with for p.o. hydration, avoid medications that can effect renal function including Nsaid's /ibuprofen. pyuria: Does not have any bacteria in the urine, urine culture noncontributory culture,asymptomatic. off antibiotics . If any new symptoms patient was told to come back toto ED. Ed. bladder outlet obstruction: continue Flomax and finasteride. Patient will go with urine bag. diabetes--Non-compliant with meds: added glipizide upon discharge. Patient needs to follow-up with his PCP, Nephrology Dr mccarthy will arrange their appointment, urology Dr Batista urology. Monitor BMP patiently [facility] pcp. Health Concerns: as above. Plan of Treatment: As above. Assessment: As above.
[2020-11-02 15:14] VITALS: BP 152/78; PULSE 90; RESP 18; TEMP 36.6; O2SAT 98
--- NOTE | 2020-11-02 16:08 | MHC.CM.PN ---
MALE 60 dx flex/ckd. HE IS DISCHARGED TO HOME TODAY WITH [facility]. HE HAS TRANSPORTATION. rn PERFORMED [employer].
[2020-11-02 16:40] LABS: Glucose, Whole Blood 185 mg/dL (60-115)
--- NOTE | 2020-11-02 17:44 | P.F2F_ITS ---
Service Date Service Date: 11/02/20 Encounter Date of encounter: 10/03/20 Encounter: flex, urinary bladder outlet obstruction Reasons for Services MD Overseeing Care: Gisela Dugan Homebound: Leaving the home is medically contraindicated at this time without the asist of a device and/or another person due th the listed conditions above and below. Homebound supporting statement: patient is generally weak and needs help to go to appointment and moniter electrol;ytes Certification: Based on the above findings, I certify that this patient is confined to the home and needs intermittent [facility] care, physical therapy and/or speech therapy, or continues to need occupational therapy. The patient is under my care, and I have initiated the establishment of the plan of care. The patient will be followed by a physician who will periodically review the plan of care.
== END 2020-11-02 18:07 | disposition home health service (06) | DRG 469 ==
LOC: HO.ED 10-30 00:02 → HO.EDOVER 10-30 01:20 → HO.IMC 10-30 07:24
PROVIDERS: Internal Medicine; Admitting Provider Internal Medicine; Emergency Provider Emergency Medicine; PCP Internal Medicine; Visit Provider Internal Medicine
DX: N17.9 Acute kidney failure, unspecified (principal); E11.22 Type 2 diabetes mellitus with diabetic chronic kidney disease; E87.5 Hyperkalemia; N13.30 Unspecified hydronephrosis; N18.30 Chronic kidney disease, stage 3 unspecified; N13.8 Other obstructive and reflux uropathy; R31.0 Gross hematuria; N40.1 Benign prostatic hyperplasia with lower urinary tract symptoms; R35.1 Nocturia; I12.9 Hypertensive chronic kidney disease with stage 1 through stage 4 chronic kidney disease, or unspecified chronic kidney disease; Z20.822 Contact with and (suspected) exposure to COVID-19; Z91.14 Patient's other noncompliance with medication regimen; Z88.0 Allergy status to penicillin; Z79.84 Long term (current) use of oral hypoglycemic drugs; Z79.899 Other long term (current) drug therapy
CPT/HCPCS: 36415; 71045; 74176; 80048; 80053; 81001; 81003; 82947; 83036; 83605; 83690; 83735; 83880; 84156; 84300; 85025; 87040; 87086; 87635; 93005; 97162; 99285; C1758; J0696; J1650; J1956

== ENCOUNTER 2020-11-07 01:44 | Emergency (ER) | payer MEDICAID, SELFPAY ==
[2020-11-07 02:02] VITALS: BP 140/69; PULSE 76; RESP 20; TEMP 36.9; O2SAT 100; BMI 34.2
--- NOTE | 2020-11-07 02:11 | ED_ITS ---
HPI - Male Genitourinary General Chief complaint: Urogenital-Male Stated complaint: Blood in urine Time Seen by Provider: 11/07/20 01:59 Source: patient Mode of arrival: ambulatory Limitations: no limitations History of Present Illness HPI Narrative: Patient status post Brown catheter on 10/30 for enlarged prostate and obstructive uropathy comes here today for blood in the urine and decreased urine output just prior to arrival, patient accidentally pulled the catheter little bit prior to arrival, no pain in abdomen no flank pain Related Data Previous Rx's Medication Instructions Recorded amlodipine 5 mg tablet 5 mg PO DAILY #30 tab 10/20/20 blood sugar diagnostic (FreeStyle #100 ea 11/02/20 Lite Strips) blood-glucose meter (FreeStyle #1 ea 11/02/20 Lite Meter) finasteride 5 mg tablet 5 mg PO DAILY #30 tab 11/02/20 glipizide 5 mg tablet 2.5 mg PO DAILY #30 tab 11/02/20 lancets 28 gauge (FreeStyle #100 ea 11/02/20 Lancets) tamsulosin 0.4 mg capsule 0.4 mg PO DAILY #30 cap 11/02/20 Allergies Allergy/AdvReac Type Severity Reaction Status Date / Time Penicillins Allergy Unknown Verified 11/07/20 02:06 Review of Systems Review of Systems: Yes all other systems are reviewed and are negative [facility] Past Medical History Medical History Chronic kidney disease Diabetes mellitus Hypertension Social History Social History Household Members: None Housing: House Alcohol intake: never Patient Tobacco Use Status: Never used Tobacco Substance Use Type: Marijuana Advance Directives: No Advance Directives Information Provided: No service: No Physical Exam Vital Signs: Vital Signs: Last Vital Signs Temp 98.4 F 11/07/20 02:02 Pulse 76 11/07/20 02:02 Resp 20 11/07/20 02:02 BP 140/69 H 11/07/20 02:02 Pulse Ox 100 11/07/20 02:02 Body Mass Index 34.2 Appearance: Alert. Oriented X3. No acute distress. ENT: Pharynx normal. Oral Mucosa moist Neck: Normal inspection. Neck supple. CVS: Normal heart rate and rhythm. Pulses normal. Respiratory: No respiratory distress. Equal air entry bilateral, no wheezing/rales/rhonchi Abdomen: Soft and nontender. Bowel sounds are present, no mass palpable, no CVA tenderness Skin: Skin warm and dry. Normal skin color. Normal skin turgor. Extremities: No lower extremity edema. No calf tenderness Neuro: Oriented X 3. MDM - Male Genitourinary MDM Narrative Medical decision making narrative: Brown catheter was flushed and bladder irrigated small amount of blood clot came urine is clear now after irrigation patient about 600 cc in the uro bag will DC patient home Discharge Plan Discharge Prescriptions: No Action amlodipine 5 mg tablet 5 mg PO DAILY Qty: 30 RF: 0 tamsulosin 0.4 mg Capsule 0.4 mg PO DAILY Qty: 30 RF: 0 finasteride 5 mg tablet 5 mg PO DAILY Qty: 30 RF: 0 glipizide 5 mg tablet 2.5 mg PO DAILY Qty: 30 RF: 0 (DME) blood-glucose meter [FreeStyle Lite Meter] Kit See Rx Instructions .ROUTE .MEDSUPPLY Qty: 1 RF: 0 (DME) FreeStyle Lite Strips Strip See Rx Instructions .Route Qty: 100 RF: 0 (DME) lancets [FreeStyle Lancets] 28 gauge misc See Rx Instructions .ROUTE .MEDSUPPLY Qty: 100 RF: 0
--- NOTE | 2020-11-07 02:14 | PC.NURSE ---
at bedside for primary eval.
--- NOTE | 2020-11-07 02:22 | PC.NURSE ---
at bedside attempting to flush bonilla.
--- NOTE | 2020-11-07 02:46 | PC.NURSE ---
Empty bonilla 1000 ml. Shaved pt leg to attach bonilla catheter.
--- NOTE | 2020-11-07 02:54 | PC.NURSE ---
at bedside successfully flushing and unblocking bonilla catheter. Bonilla catheter draining freely. Pt reports relief. Cath secured to leg with cath secure. Pt aware of plan to DC home.
== END 2020-11-07 02:55 | disposition home or self-care (01) ==
PROVIDERS: Emergency Provider Internal Medicine; PCP Internal Medicine
DX: T83.091A Other mechanical complication of indwelling urethral catheter, initial encounter (principal); E11.22 Type 2 diabetes mellitus with diabetic chronic kidney disease; I12.9 Hypertensive chronic kidney disease with stage 1 through stage 4 chronic kidney disease, or unspecified chronic kidney disease; N18.9 Chronic kidney disease, unspecified
CPT/HCPCS: 99283; 99284

== ENCOUNTER 2020-11-07 06:53 | Emergency (ER) | payer MEDICAID, SELFPAY ==
--- NOTE | 2020-11-07 07:16 | ED.MALEGU ---
HPI - Male Genitourinary General Chief complaint: Urogenital-Male Stated complaint: Catheter issue Time Seen by Provider: 11/07/20 07:16 Source: patient Mode of arrival: ambulatory Limitations: no limitations History of Present Illness HPI Narrative: Patient with recent kidney infection with obstruction so had a catheter placed. Patient states that the urine is not coming out of the catheter. Patient was discharged home 2 - 3 days ago. No fever no chills Complaint: other (blood in the bonilla) Onset (ago): hour(s) Related Data Previous Rx's Medication Instructions Recorded amlodipine 5 mg tablet 5 mg PO DAILY #30 tab 10/20/20 blood sugar diagnostic (FreeStyle #100 ea 11/02/20 Lite Strips) blood-glucose meter (FreeStyle #1 ea 11/02/20 Lite Meter) finasteride 5 mg tablet 5 mg PO DAILY #30 tab 11/02/20 glipizide 5 mg tablet 2.5 mg PO DAILY #30 tab 11/02/20 lancets 28 gauge (FreeStyle #100 ea 11/02/20 Lancets) tamsulosin 0.4 mg capsule 0.4 mg PO DAILY #30 cap 11/02/20 Allergies Allergy/AdvReac Type Severity Reaction Status Date / Time Penicillins Allergy Unknown Verified 11/07/20 02:06 Review of Systems Constitutional: Constitutional: Reports no additional constitutional complaints Eyes: Eyes: Reports no additional eye complaints ENT: Denies dizziness Cardiovascular: Cardiovascular: Reports no additional cardiovascular complaints Respiratory: Respiratory: Reports as per HPI Gastrointestinal: Gastrointestinal: Reports no additional gastrointestinal complaints Musculoskeletal: Musculoskeletal: Reports no additional musculoskeletal complaints Integumentary/Breasts: Skin/Breast: Denies rash Neurologic: Reports system reviewed and no additional complaints, except as documented, Denies dizziness and Denies Sensory deficit (Neuro) Psychiatric: Psychiatric: Denies anxiety PMF Past Medical History Medical History Chronic kidney disease Diabetes mellitus Hypertension Social History Social History Household Members: None Housing: House Alcohol intake: never Patient Tobacco Use Status: Never used Tobacco Use of substances other than those prescribed or required for medical reasons: No Substance Use Type: Marijuana Advance Directives: No service: No Physical Exam Vital Signs: Vital Signs: Last Vital Signs Temp 98.1 F 11/07/20 12:01 Pulse 78 11/07/20 12:01 Resp 16 11/07/20 12:57 BP 154/88 H 11/07/20 12:01 Pulse Ox 99 11/07/20 12:01 Body Mass Index 34.8 Neuro: Sensory Exam: No Sensory deficit (Neuro) Course Reevaluation(s) Reevaluation #1: Bonilla cleared, puting urine in the bag. Waiting on social service support Time: 11:14 Reevaluation #2: I changed the bonilla, Clot removed, 1L of clear urine removed Time: 12:13 Reevaluation #3: patient has services set up will dc home Time: 13:05 MDM - Male Genitourinary Lab Data Result diagrams: 11/07/20 08:09 11/07/20 08:09 Labs: Lab Results 11/07/20 11/07/20 Range/Units 08:09 08:09 WBC 11.5 H (4.8-10.8) X10*3/uL RBC 3.30 L (4.60-5.80) X10*6/uL Hgb 10.2 L (14.0-18.0) g/dl Hct 30.0 L (42-52) % MCV 90.9 (80-98) fL MCH 30.9 (27.0-33.0) pg MCHC 34.0 (31.0-36.0) g/dl RDW 12.7 (11.0-16.0) % Plt Count 270 (160-400) X10*3/uL MPV 11.1 (9.4-12.4) fL Immature Gran % (Auto) 0.6 H (0.0-0.4) % Neut % (Auto) 69.6 (45-73) % Lymph % (Auto) 17.8 L (20-40) % [place] % (Auto) 7.5 (2-11) % Eos % (Auto) 3.9 (0-4) % Baso % (Auto) 0.6 (0-2) % Lymph # (Auto) 2.1 (1.2-4.9) X10*3/uL [place] # (Auto) 0.9 (0.1-1.2) X10*3/uL Eos # (Auto) 0.5 H (0.0-0.4) X10*3/uL Baso # (Auto) 0.1 (0.0-0.2) X10*3/uL Abs Immat Gran (auto) 0.07 H (0.00-0.03) X10*3/uL Absolute Neuts (auto) 8.0 (2.0-8.3) X10*3/uL Absolute Nucleated RBC 0.000 (0.0-0.012) X10*3/uL Nucleated RBC % (auto) 0.0 (0.0-0.2) /100WBC Sodium 133 L (135-145) mmol/L Potassium 4.3 (3.3-5.1) mmol/L Chloride 100 (96-108) mmol/L Carbon Dioxide 25 (22-29) mmol/L Anion Gap 12 (12-20) BUN 14 (9-16) mg/dL Creatinine 1.33 (0.5-1.4) mg/dL Estim Creat Clear Calc 76.5 Estimated GFR 55 Random Glucose 173 H (60-115) mg/dL Calcium 8.5 (8.4-10.2) mg/dL Discharge Plan Discharge Clinical Impression: Acute urinary retention Complication, blocked Bonilla catheter Qualifiers: Encounter type: initial encounter Qualified Code(s): T83.091A - Other mechanical complication of indwelling urethral catheter, initial encounter Patient Disposition: Home, Self-Care Instructions: Bonilla Catheter Placement and Care (ED) Prescriptions: No Action amlodipine 5 mg tablet 5 mg PO DAILY Qty: 30 RF: 0 tamsulosin 0.4 mg Capsule 0.4 mg PO DAILY Qty: 30 RF: 0 finasteride 5 mg tablet 5 mg PO DAILY Qty: 30 RF: 0 glipizide 5 mg tablet 2.5 mg PO DAILY Qty: 30 RF: 0 (DME) blood-glucose meter [FreeStyle Lite Meter] Kit See Rx Instructions .ROUTE .MEDSUPPLY Qty: 1 RF: 0 (DME) FreeStyle Lite Strips Strip See Rx Instructions .Route Qty: 100 RF: 0 (DME) lancets [FreeStyle Lancets] 28 gauge misc See Rx Instructions .ROUTE .MEDSUPPLY Qty: 100 RF: 0 Referrals: [facility] [Other] - 2 days Gisela Dugan MD [Primary Care Provider] - 5 days Ben Batista MD [Physician] - 5 days
[2020-11-07 07:30] VITALS: BP 133/70; PULSE 82; RESP 16; TEMP 36.8; O2SAT 98; BMI 34.8
[2020-11-07 07:55] VITALS: BP 133/70
[2020-11-07 08:12] VITALS: BP 146/84; PULSE 83; RESP 16; O2SAT 99
[2020-11-07 08:20] LABS: MANUAL DIFF FLAG NO
[2020-11-07 08:21] LABS: Basophils Absolute Auto 0.1 X10*3/uL (0.0-0.2); Basophils Percent Auto 0.6 % (0-2); Eosinophils Absolute Auto 0.5 X10*3/uL (0.0-0.4); Eosinophils Percent Auto 3.9 % (0-4); Hemoglobin 10.2 g/dl (14.0-18.0); Imm Gran Abs Auto 0.07 X10*3/uL (0.00-0.03); Imm Gran Pct Auto 0.6 % (0.0-0.4); Lymphocytes Absolute Auto 2.1 X10*3/uL (1.2-4.9); Lymphocytes Percent Auto 17.8 % (20-40); Mean Corpuscular Hemoglobin 30.9 pg (27.0-33.0); Mean Corpuscular Volume 90.9 fL (80-98); Mean Platelet Volume 11.1 fL (9.4-12.4); Monocytes Absolute Auto 0.9 X10*3/uL (0.1-1.2); Monocytes Percent Auto 7.5 % (2-11); Neutrophils Percent Auto 69.6 % (45-73); Platelet Count 270 X10*3/uL (160-400); Red Cell Distribution Width 12.7 % (11.0-16.0); White Blood Count 11.5 X10*3/uL (4.8-10.8)
[2020-11-07] MEDS: 0.9 % Sodium Chloride 1,000 ML 999 ML IVCONT ×2 (08:39→09:45)
[2020-11-07 08:58] LABS: Anion Gap 12 (12-20); Blood Urea Nitrogen 14 mg/dL (9-16); Calcium 8.5 mg/dL (8.4-10.2); Carbon Dioxide 25 mmol/L (22-29); Chloride 100 mmol/L (96-108); Creatinine Clr Calc Pharmacy 76.5; Estimated Glomerular Filt Rate 55; Glucose Random 173 mg/dL (60-115); Potassium 4.3 mmol/L (3.3-5.1); Sodium 133 mmol/L (135-145)
[2020-11-07] MEDS: Ketorolac Tromethamine 15 MG/ML VIAL IVPUSH (11:19)
--- NOTE | 2020-11-07 11:50 | PC.NURSE ---
bonilla irrigated w 200 ml ns, minimal return of urine to res. per md, bonilla to be replaced. pct at bedside to replace, pt refusing. sts i want the doctor to do it, you did it last time and i dont want you . md at bedside to replace, replaced w 18 fr and now draining red-tinged urine, initial drainage 650 ml. pt appears more comfortable, sts pain relief from medications at this time.
[2020-11-07 12:01] VITALS: BP 154/88; PULSE 78; RESP 18; TEMP 36.7; O2SAT 99
[2020-11-07 12:57] VITALS: RESP 16
--- NOTE | 2020-11-07 13:15 | MHC.CM.ED ---
[facility] would not be able to accept patient. Referal broadcasted in [employer]. [facility] is willing to accept patient. Dr Alonso and Tresa MIKE aware. Patient has transportation home. Continue to monitor for d/c needs.
== END 2020-11-07 13:30 | disposition home or self-care (01) ==
PROVIDERS: Emergency Provider Emergency Medicine; PCP Internal Medicine
DX: R33.9 Retention of urine, unspecified (principal); T83.091A Other mechanical complication of indwelling urethral catheter, initial encounter; E11.22 Type 2 diabetes mellitus with diabetic chronic kidney disease; I12.9 Hypertensive chronic kidney disease with stage 1 through stage 4 chronic kidney disease, or unspecified chronic kidney disease; N18.9 Chronic kidney disease, unspecified
CPT/HCPCS: 36415; 51702; 80048; 85025; 96361; 96374; 99284; 99285; J1885

== ENCOUNTER 2020-11-13 10:25 | Outpatient (REF) | payer MEDICAID, SELFPAY ==
[2020-11-13 11:27] LABS: MANUAL DIFF FLAG NO
[2020-11-13 11:32] LABS: Basophils Absolute Auto 0.1 X10*3/uL (0.0-0.2); Basophils Percent Auto 0.9 % (0-2); Eosinophils Absolute Auto 0.3 X10*3/uL (0.0-0.4); Eosinophils Percent Auto 3.9 % (0-4); Hematocrit 34.3 % (42-52); Hemoglobin 11.6 g/dl (14.0-18.0); Imm Gran Abs Auto 0.03 X10*3/uL (0.00-0.03); Imm Gran Pct Auto 0.4 % (0.0-0.4); Lymphocytes Absolute Auto 2.1 X10*3/uL (1.2-4.9); Lymphocytes Percent Auto 25.1 % (20-40); Mean Corpuscular HGB Conc 33.8 g/dl (31.0-36.0); Mean Corpuscular Hemoglobin 30.9 pg (27.0-33.0); Mean Corpuscular Volume 91.2 fL (80-98); Mean Platelet Volume 11.4 fL (9.4-12.4); Monocytes Absolute Auto 0.6 X10*3/uL (0.1-1.2); Monocytes Percent Auto 7.2 % (2-11); Neutrophils Absolute Auto 5.3 X10*3/uL (2.0-8.3); Neutrophils Percent Auto 62.5 % (45-73); Platelet Count 254 X10*3/uL (160-400); Red Blood Count 3.76 X10*6/uL (4.60-5.80); Red Cell Distribution Width 13.1 % (11.0-16.0); White Blood Count 8.5 X10*3/uL (4.8-10.8)
[2020-11-13 11:47] LABS: Estimated Average Glucose 226 mg/dL; Hemoglobin A1c % 9.5 %
[2020-11-13 11:54] LABS: Alanine Aminotransferase 13 U/L (0-40); Albumin Level 4.1 g/dL (3.5-5.0); Alkaline Phosphatase 66 U/L (39-117); Anion Gap 15 (12-20); Aspartate Amino Transferase 14 U/L (5-37); Bilirubin Total 0.5 mg/dL (0.0-1.0); Blood Urea Nitrogen 18 mg/dL (9-16); Calcium 9.8 mg/dL (8.4-10.2); Carbon Dioxide 24 mmol/L (22-29); Chloride 104 mmol/L (96-108); Estimated Glomerular Filt Rate 52; Glucose Random 195 mg/dL (60-115); Potassium 4.6 mmol/L (3.3-5.1); Sodium 138 mmol/L (135-145); Total Protein 7.6 g/dL (6.5-8.0)
[2020-11-13 12:09] LABS: TSH reflex Free T4 1.04 uIU/mL (0.32-4.0)
[2020-11-14 21:16] LABS: LDL Cholesterol Direct 141 mg/dL (<100)
== END 2020-11-13 10:26 | disposition home or self-care (01) ==
LOC: HO.HMGCLDS 10:25
PROVIDERS: PCP Internal Medicine; Visit Provider Internal Medicine
DX: D64.9 Anemia, unspecified (principal); E11.9 Type 2 diabetes mellitus without complications; E66.09 Other obesity due to excess calories; N32.0 Bladder-neck obstruction
CPT/HCPCS: 36415; 80053; 83036; 83721; 84443; 85025

== ENCOUNTER → 2020-11-28 09:19 | Outpatient (BNVA) | payer MEDICAID, SELFPAY | PROVIDERS: PCP Internal Medicine; Visit Provider Urology | DX: R33.9 Retention of urine, unspecified (principal); E08.40 Diabetes mellitus due to underlying condition with diabetic neuropathy, unspecified | CPT/HCPCS: 51700; 51701; 51798; 99212 ==

== ENCOUNTER → 2021-01-01 10:33 | Outpatient (BNVA) | payer OTHER, SELFPAY | PROVIDERS: PCP Internal Medicine; Visit Provider Urology | DX: R33.9 Retention of urine, unspecified (principal); E08.40 Diabetes mellitus due to underlying condition with diabetic neuropathy, unspecified | CPT/HCPCS: 51700; 51798; 99212 ==

== ENCOUNTER 2021-01-01 23:16 | Emergency (ER) | payer OTHER, SELFPAY ==
[2021-01-01 23:19] VITALS: BP 134/74; PULSE 101; RESP 18; TEMP 36.9; O2SAT 99; BMI 32.1
[2021-01-02] MEDS: Acetaminophen 325 MG TABLET 650 MG PO (00:07)
--- NOTE | 2021-01-02 01:01 | ED.MALEGU ---
HPI - Male Genitourinary General Chief complaint: Urogenital-Male Stated complaint: genital pain due to bonilla removal Time Seen by Provider: 01/02/21 00:52 Source: patient and old records reviewed Limitations: no limitations History of Present Illness HPI Narrative: Patient with a history of urinary retention who today had a Bonilla catheter removed in his urologist office. Since going home he has had difficulty urinating stating he can only P a few drops at a time. He had significant lower abdominal discomfort but had some Tylenol which helped. No back discomfort. No fevers or chills. No other significant complaints. Related Data Home Medications Medication Instructions Recorded Confirmed amlodipine 5 mg tablet 5 mg PO DAILY 01/01/21 Previous Rx's Medication Instructions Recorded blood sugar diagnostic (FreeStyle #100 ea 11/02/20 Lite Strips) blood-glucose meter (FreeStyle #1 ea 11/02/20 Lite Meter) lancets 28 gauge (FreeStyle #100 ea 11/02/20 Lancets) blood sugar diagnostic (FreeStyle #100 ea 11/16/20 Lite Strips) blood-glucose meter (FreeStyle #1 ea 11/16/20 Lite Meter) lancets 28 gauge (FreeStyle #100 ea 11/16/20 Lancets) atorvastatin 20 mg tablet 20 mg PO DAILY 90 Days #90 tab 12/07/20 glipizide 5 mg tablet 5 mg PO DAILY 90 Days #90 tab 12/07/20 finasteride 5 mg tablet 5 mg PO DAILY 90 Days #90 tab 01/01/21 tamsulosin 0.4 mg capsule 0.4 mg PO DAILY 90 Days #90 cap 01/01/21 Allergies Allergy/AdvReac Type Severity Reaction Status Date / Time Penicillins Allergy Unknown Verified 01/01/21 10:35 Review of Systems Constitutional: Constitutional: Denies fever(s) Cardiovascular: Comments: No chest pain Respiratory: Comments: No dyspnea Gastrointestinal: Comments: Suprapubic pain Genitourinary: Comments: Difficulty urinating PMFSH Past Medical History Medical History Chronic kidney disease Diabetes mellitus Hypertension Social History Social History Household Members: None Housing: House Alcohol intake: never Patient Tobacco Use Status: Never used Tobacco Substance Use Type: Marijuana Advance Directives: No service: No Current occupational status: employed Physical Exam Vital Signs: Vital Signs: Last Vital Signs Temp 98.4 F 01/01/21 23:19 Pulse 101 H 01/01/21 23:19 Resp 18 01/01/21 23:19 BP 134/74 01/01/21 23:19 Pulse Ox 99 01/01/21 23:19 Body Mass Index 32.1 Const: Other: Awake alert no acute distress Resp: Other: Clear and equal bilaterally Cardio: Other: Regular rate and rhythm no murmurs rubs or gallops GI: Other: Minimal suprapubic tenderness : Other: Normal Skin: Other: Warm pink and dry Course Course Course Narrative: Urinary retention Post catheter dysuria Ultrasound shows distended bladder. New Bonilla catheter ordered Discharge Plan Discharge Clinical Impression: Bladder outlet obstruction Patient Disposition: Home, Self-Care Instructions: Urinary Retention in Men (ED), Bonilla Catheter Placement and Care (ED) Additional Instructions: Call your urologist tomorrow for follow-up Prescriptions: No Action (DME) FreeStyle Lite Strips Strip See Rx Instructions .ROUTE .MEDSUPPLY Qty: 100 RF: 0 (DME) blood-glucose meter [FreeStyle Lite Meter] Kit See Rx Instructions .Route Qty: 1 RF: 0 (DME) lancets [FreeStyle Lancets] 28 gauge misc See Rx Instructions .Route Qty: 100 RF: 0 (DME) blood-glucose meter [FreeStyle Lite Meter] Kit See Rx Instructions .ROUTE .MEDSUPPLY Qty: 1 RF: 0 (DME) FreeStyle Lite Strips Strip See Rx Instructions .Route Qty: 100 RF: 0 (DME) lancets [FreeStyle Lancets] 28 gauge misc See Rx Instructions .ROUTE .MEDSUPPLY Qty: 100 RF: 0 atorvastatin 20 mg tablet 20 mg PO DAILY 90 Days Qty: 90 RF: 0 glipizide 5 mg tablet 5 mg PO DAILY 90 Days Qty: 90 RF: 0 finasteride 5 mg tablet 5 mg PO DAILY 90 Days Qty: 90 RF: 1 tamsulosin 0.4 mg capsule 0.4 mg PO DAILY 90 Days Qty: 90 RF: 1
[2021-01-02 01:25] LABS: Appearance Urine CLOUDY; Color Urine YELLOW; Glucose Urine UA NEG (NEG); Leukocyte Esterase Urine 3+ (NEG); Nitrite Urine POS (NEG); UACC Culture Trigger YES; Urine Blood 1+ (NEG); Urine Ketones NEG (NEG); Urine Protein NEG (NEG-TRACE)
[2021-01-02 01:32] LABS: Bacteria Urine 2+ /LPF; RBC Urine 0 /HPF (0); WBC Clumps Urine NOTED; WBC Urine 50-75 /HPF (0-4)
--- NOTE | 2021-01-02 01:36 | ED.MALEGU ---
HPI - Male Genitourinary General Chief complaint: Urogenital-Male Stated complaint: genital pain due to bonilla removal Time Seen by Provider: 01/02/21 00:52 Source: patient and old records reviewed Limitations: no limitations Related Data Home Medications Medication Instructions Recorded Confirmed amlodipine 5 mg tablet 5 mg PO DAILY 01/01/21 Previous Rx's Medication Instructions Recorded blood sugar diagnostic (FreeStyle #100 ea 11/02/20 Lite Strips) blood-glucose meter (FreeStyle #1 ea 11/02/20 Lite Meter) lancets 28 gauge (FreeStyle #100 ea 11/02/20 Lancets) blood sugar diagnostic (FreeStyle #100 ea 11/16/20 Lite Strips) blood-glucose meter (FreeStyle #1 ea 11/16/20 Lite Meter) lancets 28 gauge (FreeStyle #100 ea 11/16/20 Lancets) atorvastatin 20 mg tablet 20 mg PO DAILY 90 Days #90 tab 12/07/20 glipizide 5 mg tablet 5 mg PO DAILY 90 Days #90 tab 12/07/20 finasteride 5 mg tablet 5 mg PO DAILY 90 Days #90 tab 01/01/21 tamsulosin 0.4 mg capsule 0.4 mg PO DAILY 90 Days #90 cap 01/01/21 sulfamethoxazole 800 1 tab PO BID #14 tab 01/02/21 mg-trimethoprim 160 mg tablet (Bactrim DS) Allergies Allergy/AdvReac Type Severity Reaction Status Date / Time Penicillins Allergy Unknown Verified 01/01/21 10:35 [facility] Past Medical History Medical History Chronic kidney disease Diabetes mellitus Hypertension Social History Social History Household Members: None Housing: House Alcohol intake: never Patient Tobacco Use Status: Never used Tobacco Substance Use Type: Marijuana Advance Directives: No service: No Current occupational status: employed Physical Exam Vital Signs: Vital Signs: Last Vital Signs Temp 98.4 F 01/01/21 23:19 Pulse 101 H 01/01/21 23:19 Resp 18 01/01/21 23:19 BP 134/74 01/01/21 23:19 Pulse Ox 99 01/01/21 23:19 Body Mass Index 32.1 MDM - Male Genitourinary Lab Data Labs: Lab Results 01/02/21 Range/Units 01:19 Urine Color YELLOW Urine Appearance CLOUDY Urine pH 6.0 (5.0-8.0) Ur Specific [place] 1.010 (1.005-1.025) Urine Protein NEG (NEG-TRACE) MG/DL Urine Glucose (UA) NEG (NEG) MG/DL Urine Ketones NEG (NEG) MG/DL Urine Blood 1+ H (NEG) Urine Nitrite POS H (NEG) Ur Leukocyte Esterase 3+ H (NEG) Urine RBC 0 (0) /HPF Urine WBC 50-75 H (0-4) /HPF Urine WBC Clumps NOTED Ur Squamous Epith Cells NONE /LPF Urine Bacteria 2+ /LPF Discharge Plan Discharge Clinical Impression: Bladder outlet obstruction Patient Disposition: Home, Self-Care Instructions: Urinary Retention in Men (ED), Bonilla Catheter Placement and Care (ED) Additional Instructions: Call your urologist tomorrow for follow-up Prescriptions: New sulfamethoxazole-trimethoprim [Bactrim DS] 800-160 mg tablet 1 tab PO BID Qty: 14 RF: 0 No Action (DME) FreeStyle Lite Strips Strip See Rx Instructions .ROUTE .MEDSUPPLY Qty: 100 RF: 0 (DME) blood-glucose meter [FreeStyle Lite Meter] Kit See Rx Instructions .Route Qty: 1 RF: 0 (DME) lancets [FreeStyle Lancets] 28 gauge misc See Rx Instructions .Route Qty: 100 RF: 0 (DME) blood-glucose meter [FreeStyle Lite Meter] Kit See Rx Instructions .ROUTE .MEDSUPPLY Qty: 1 RF: 0 (DME) FreeStyle Lite Strips Strip See Rx Instructions .Route Qty: 100 RF: 0 (DME) lancets [FreeStyle Lancets] 28 gauge misc See Rx Instructions .ROUTE .MEDSUPPLY Qty: 100 RF: 0 atorvastatin 20 mg tablet 20 mg PO DAILY 90 Days Qty: 90 RF: 0 glipizide 5 mg tablet 5 mg PO DAILY 90 Days Qty: 90 RF: 0 finasteride 5 mg tablet 5 mg PO DAILY 90 Days Qty: 90 RF: 1 tamsulosin 0.4 mg capsule 0.4 mg PO DAILY 90 Days Qty: 90 RF: 1
[2021-01-02] MEDS: Sulfamethox/Trimeth 800/160 TABLET 1 TAB PO (02:01)
[2021-01-02 02:07] VITALS: BP 146/82; PULSE 94; RESP 18; TEMP 36.8; O2SAT 97
--- NOTE | 2021-01-02 02:11 | PC.NURSE ---
Pt alert and oriented x4, calm and cooperative. Pt denies pain. Bonilla cath placed, pt tolerated well. 800ml output from bonilla cath. Pt eductaed on dc teaching and prescriptions and stated an understanding. Pt dc with bonilla cath. Vitals stable. No IV in place.
== END 2021-01-02 02:21 | disposition home or self-care (01) ==
PROVIDERS: Emergency Provider Emergency Medicine; PCP Internal Medicine
DX: N32.0 Bladder-neck obstruction (principal); R33.9 Retention of urine, unspecified; F12.90 Cannabis use, unspecified, uncomplicated; Z79.899 Other long term (current) drug therapy
CPT/HCPCS: 51700; 51705; 81001; 87086; 87088; 87186; 99283; 99285

== ENCOUNTER → 2021-02-01 14:27 | Outpatient (BNVA) | payer MEDICAID, SELFPAY | PROVIDERS: PCP Internal Medicine; Visit Provider Urology | DX: N32.0 Bladder-neck obstruction (principal); R33.9 Retention of urine, unspecified; E11.65 Type 2 diabetes mellitus with hyperglycemia; E11.22 Type 2 diabetes mellitus with diabetic chronic kidney disease; I12.9 Hypertensive chronic kidney disease with stage 1 through stage 4 chronic kidney disease, or unspecified chronic kidney disease; N18.9 Chronic kidney disease, unspecified; Z96.0 Presence of urogenital implants; Z88.0 Allergy status to penicillin; Z46.6 Encounter for fitting and adjustment of urinary device | CPT/HCPCS: 52000; 99212 ==